=== PATIENT | female | born 1995 | race Caucasian/White ===

== ENCOUNTER 2016-09-14 13:35 | Day surgery (SDC) | payer OTHER ==
[2016-09-14 14:09] LABS: BASOPHIL 0.4 % (0-2.0); EOSINOPHIL 0.7 % (0-4.5); MCHC 33.6 g/dl (32.0-36.0); MEAN CELL VOLUME 89.3 fl (80-96); MEAN PLT VOLUME 11.3 fl (7.5-11.1); NEUTROPHILS 62.4 % (42.8-82.8); PLATELET COUNT 132 K/MM3 (134-434); RDW 12.8 % (11.6-15.6); WHITE BLOOD COUNT 6.6 K/mm3 (4.0-10.0)
[2016-09-14 14:14] VITALS: BMI 17.4
[2016-09-14] MEDS ORDERED: MIDAZOLAM HCL 2 MG/2 ML SINGLE DOSE VIAL ONE (15:49)
[2016-09-14] MEDS ORDERED: PROPOFOL 20 ML ONE (15:57)
--- NOTE | 2016-09-14 15:59 | HP ---
Past Medical History - Primary Care Physician PCP:: Ellen Car - Admission Chief Complaint: 21 yrs , 8.6 wks diagnozed missed is admitted for D& C suction . c/o cramps, no c/o bleeding, requests termination of History of Present Illness: pnc at [address] [place] [address] one vist 09/10/16 sono 7 wks iup, no fHr seen demise wirk up noted AB pos pap unsatisfactory. gc/ct neg History Source: Patient, Medical Record Limitations to Obtaining History: No Limitations - Past Medical History PANMAN: No: CVA, Migraine, Seizure Cardiovascular: No: HTN Pulmonary: No: Asthma Gastrointestinal: No: Gastritis Reproductive: No: Ectopic , PID ...: 2 ...Para: 0 ...Induced : 1 (2014) ...LMP: 07/11/16 ... Weeks Gestation by Dates: 8.6 Heme/Onc: No: Anemia, Bleeding Disorder Infectious Disease: No: HIV, STD's Psych: No: Depression Endocrine: No: Diabetes Mellitus, Hyperthyroidism, Hypothyroidism - Past Surgical History Past Surgical History: Yes: None Hx Myomectomy: No Hx Transabdominal Cerclage: No - Smoking History Smoking history: Never smoked Have you smoked in the past 12 months: No - Alcohol/Substance Use Hx Alcohol Use: Yes (SOCIALLY) History of Substance Use: reports: None Home Medications - Allergies Allergies/Adverse Reactions: Allergies Allergy/AdvReac Type Severity Reaction Status Date / Time No Known Drug Allergies Allergy Verified 09/14/16 14:20 - Home Medications Home Medications: Ambulatory Orders Acetaminophen [Tylenol] 650 mg PO PRN PRN 09/14/16 Iron 18 mg PO DAILY 09/14/16 Vit/Iron Fumarate/FA [ Tablet] 1 each PO DAILY 09/14/16 Physical Exam - Maternity Vital Signs: Vital Signs Temperature 98.1 F 09/14/16 14:28 Pulse Rate 78 09/14/16 14:28 Respiratory Rate 20 09/14/16 14:28 Blood Pressure 107/68 09/14/16 14:28 O2 Sat by Pulse Oximetry (%) 100 09/14/16 14:26 Constitutional: Yes: Well Nourished Eyes: Yes: WNL HENT: Yes: WNL Neck: Yes: WNL Cardiovascular: Yes: WNL Lungs: Clear to auscultation Breast(s): Yes: WNL. No: Mass - Abdominal Exam/OB Fundal Height: 6 Heart Rate (range): abs - Vaginal Exam/OB Vaginal Bleediing: No Speculum Exam: Yes Dilatation (cm): close - Physical Exam Musculoskeletal: Yes: WNL Extremities: Yes: WNL. No: Calf Tenderness Edema: No Integumentary: Yes: WNL Deep Tendon Reflex Grade: Normal +2 ...Motor Strength: WNL Psychiatric: Yes: WNL, Alert, Oriented - Labs Lab Results: CBC, BMP 09/14/16 13:57 Laboratory Tests 09/14/16 13:57 Blood Type AB POSITIVE Problem List - Problems (1) 8 weeks gestation of Code(s): Z3A.08 - 8 WEEKS GESTATION OF (2) Missed Code(s): O02.1 - MISSED Assessment/Plan 21 yrs 8.6 weeks, by dates, 7 weeks by sono, absent fhs on sono diagnozed missed ab Plan dilatation suction curettage
[2016-09-14] MEDS ORDERED: DEXAMETHASONE SOD PHOSPHATE 4 MG/1 ML VIAL ONE (16:01)
[2016-09-14] MEDS ORDERED: KETOROLAC TROMETHAMINE 30 MG/1 ML VIAL ONE (16:10)
[2016-09-14] MEDS ORDERED: OXYTOCIN 10 UNITS/ML VIAL ONE (16:12)
[2016-09-14] MEDS ORDERED: PROMETHAZINE HCL 25 MG/1 ML VIAL IVPUSH PRN (16:21)
[2016-09-14] MEDS ORDERED: ONDANSETRON 4 MG/2 ML VIAL IVPUSH PRN (16:21)
[2016-09-14] MEDS ORDERED: ACETAMINOPHEN 325 MG TABLET (FP) PO PRN (16:24)
[2016-09-14] MEDS ORDERED: IBUPROFEN 400 MG TABLET (FP) PO PRN (16:24)
--- NOTE | 2016-09-14 16:28 | OP ---
Operative Note - Note: Operative Date: 09/14/16 Pre-Operative Diagnosis: missed ab. 8 weeks gestation Operation: dilatation suction curettage Findings: Ut av 6 weeks size, soft, cx close, dilated upto #10, 9# canula used uterocervical length 9cm adnexa head shipper Surgeon: Ellen Car Anesthesiologist/CALL WORKER: Fito Shukla Anesthesia: MAC Specimens Removed: uterine contents Estimated Blood Loss (mls): 150 Fluid Volume Replaced (mls): 500 (pitocin in 1000ml RL solution added) Operative Report Dictated: Yes
[2016-09-14] MEDS ORDERED: LACTATED RINGERS SOLUTION 1,000 ML IV SCH (16:30)
[2016-09-14 17:02] VITALS: TEMP 97.7
--- NOTE | 2016-09-14 17:25 | OP ---
DATE OF OPERATION: 09/14/2016 PREOPERATIVE DIAGNOSIS: Missed . POSTOPERATIVE DIAGNOSIS: Missed . OPERATION DONE: Dilatation, suction, curettage. SURGEON: Jyoti Car M.D. ANESTHESIOLOGIST: Fito Shukla M.D. ANESTHESIA: IV anesthesia. FINDINGS: This is a 21-year-old 2 para 0-0-1-0, LMP on July 11, 2016 , is 8.6 weeks' gestation by days and by sonogram on September 10, 2016, she is 7 weeks. No heart sounds were noted, so demise was diagnosed. Missed is diagnosed. PROCEDURE: Patient is taken to operating room table and general anesthesia was given. Patient was placed in lithotomy position. Pubis, perineum, vagina was painted with Betadine, draped in usual manner. Pelvic examination was done. Uterus was anteverted 6 weeks' size. Both adnexa was not palpable. Weighted speculum was put anterior lip of the cervix was held with the single-tooth tenaculum, and the cervix was dilated up to number 10 dilator and number 9 cannula was used for suction, and then suction was done, and the uterine contents were aspirated out until no more contents were obtained, then the cannula was removed. Uterine cavity was curetted, gritty sensation was found, uterine cavity was cleaned. The tenaculum was removed. A little tear was noted anteriorly and no bleeding. Silver nitrate was used for hemostasis. Weighted speculum removed. Patient tolerated procedure well. Pelvic examination was done again and uterus was firm. Estimated blood loss was 150 mL. Blood type is AB positive. Patient tolerated procedure well. Then she was transferred to the recovery room in stable condition. Anesthesiologist was asked to add 20 units of Pitocin to 1000 ml during the procedure. JYOTI CAR M.D. [id number] MTDD
[2016-09-14 18:55] VITALS: BP 106/51; PULSE 70
--- NOTE | 2016-09-16 12:45 | PATH ---
Surgical Pathology Report Patient Name: AJ HOLLY Med. Rec. #: [id number] /Age/Gender: 1995 (Age: 21) / F Account: [id number] Location: [facility] SURGICAL Taken: 09/14/2016 Received: 09/15/2016 Reported: 09/16/2016 Physicians: Ellen Car M.D. Specimen(s) Received UTERINE CONTENTS Clinical History Missed , Sonogram 09/10/16 7 week absent [facility] Final Diagnosis UTERINE CONTENT: SOMATIC TISSUE IDENTIFIED (NUCLEATED RED BLOOD CELLS). CHORIONIC VILLUS TISSUE PRESENT, PARTIALLY FIBROTIC AND HYDROPIC. Electronically Signed Sebastian Elaine M.D. Gross Description Received in formalin labeled "uterine content" is a 12.0 x 8.5 x 1.2 cm aggregate of dc-brown soft tissue fragments. Villous tissue is identified. No definite somatic tissue is identified. A claims customer service representative portion is submitted in one cassette. 09/15/2016 [facility]
== END 2016-09-14 18:50 | disposition home or self-care (01) ==
LOC: JASU-SURG 13:35
PROVIDERS: ATTEND Obstetrics & Gynecology
PROC: 10D17ZZ Extraction of Products of Conception, Retained, Via Natural or Artificial Opening (ICD-10-PCS; principal; 2016-09-14 16:00)
DX: O02.1 Missed abortion (principal)
CPT/HCPCS: 36415; 85025; 86850; 86900; 86901; 88305-TC; 94760

== ENCOUNTER 2017-01-06 21:24 | Emergency (ER) | payer SELFPAY ==
[2017-01-06 21:59] VITALS: BP 131/86; PULSE 71; TEMP 99; BMI 17.6
[2017-01-07] MEDS ORDERED: ACETAMINOPHEN 1000 MG/100 ML VIAL (NON FORMULARY) IVPB ONE (00:02)
[2017-01-07] MEDS ORDERED: SODIUM CHLORIDE 1,000 ML IV STA (00:02)
[2017-01-07] MEDS ORDERED: ACETAMINOPHEN INJECTION 100 ML IVPB ONE (00:20)
[2017-01-07 00:27] LABS: BASOPHIL 0.4 % (0-2.0); EOSINOPHIL 0.8 % (0-4.5); MCH 30.3 pg (25.7-33.7); MCHC 34.1 g/dl (32.0-36.0); MEAN CELL VOLUME 88.6 fl (80-96); MEAN PLT VOLUME 11.4 fl (7.5-11.1); NEUTROPHILS 60.1 % (42.8-82.8); PLATELET COUNT 135 K/MM3 (134-434); RDW 13.5 % (11.6-15.6); WHITE BLOOD COUNT 8.1 K/mm3 (4.0-10.0)
[2017-01-07 00:31] LABS: URINE APPEARANCE SLCLOUDY; URINE BILIRUBIN NEGATIVE (NEGATIVE); URINE BLOOD NEGATIVE (NEGATIVE); URINE COLOR LTYELLOW; URINE GLUCOSE (UA) NEGATIVE (NEGATIVE); URINE KETONE NEGATIVE (NEGATIVE); URINE LEUK ESTERASE NEGATIVE (NEGATIVE); URINE NITRITE NEGATIVE (NEGATIVE); URINE PROTEIN NEGATIVE (NEGATIVE); URINE UROBILINOGEN NEGATIVE mg/dL (0.2-1.0)
--- NOTE | 2017-01-07 00:40 | PDOC ---
History of Present Illness - General Chief Complaint: Pain Stated Complaint: VAGINAL BLEEDING () Time Seen by Provider: 01/06/17 23:51 - History of Present Illness Initial Comments: 01/07/17 00:38 "The patient is a 21 year old female A2, with no significant past medical history, who presents to the emergency room 5 weeks complaining of 4 days of intermittent suprapubic abdominal cramping and nausea. Her LMP was . She denies vaginal bleeding, vaginal discharge. She has not had an ultrasound yet. Denies fever, chills, vomiting. Denies dysuria. Denies flank pain. Allergies: HARJINDER OBGYN: Dr. Driscoll " Past History - Past Medical History Allergies/Adverse Reactions: Allergies Allergy/AdvReac Type Severity Reaction Status Date / Time No Known Drug Allergies Allergy Verified 09/14/16 14:20 Home Medications: Ambulatory Orders Acetaminophen [Tylenol .Regular Strength -] 650 mg PO Q4H PRN #0 tablet Acetaminophen [Tylenol] 650 mg PO PRN PRN 09/14/16 Ibuprofen [Motrin -] 400 mg PO Q4H PRN #0 tablet 09/14/16 Iron 18 mg PO DAILY 09/14/16 Vit/Iron Fumarate/FA [ Tablet] 1 each PO DAILY 09/14/16 - Suicide/Smoking/Psychosocial Hx Smoking History: Never smoked Have you smoked in the past 12 months: No Information on smoking cessation initiated: No Hx Alcohol Use: No Drug/Substance Use Hx: No Substance Use Type: Alcohol Hx Substance Use Treatment: No Review of Systems - Review of Systems Comments:: 01/07/17 00:38 " GENERAL/CONSTITUTIONAL: No fever or chills. No weakness. HEAD, EYES, EARS, NOSE AND THROAT: No change in vision. No ear pain or discharge. No sore throat. CARDIOVASCULAR: No chest pain or shortness of breath. RESPIRATORY: No cough, wheezing, or hemoptysis. GASTROINTESTINAL: +suprapubic cramping. No nausea, vomiting, diarrhea or constipation. GENITOURINARY: No dysuria, frequency, or change in urination. MUSCULOSKELETAL: No joint or muscle swelling or pain. No neck or back pain. SKIN: No rash NEUROLOGIC: No headache, vertigo, loss of consciousness, or change in strength/ sensation. ENDOCRINE: No increased thirst. No abnormal weight change. HEMATOLOGIC/LYMPHATIC: No anemia, easy bleeding, or history of blood clots. ALLERGIC/IMMUNOLOGIC: No hives or skin allergy." *Physical Exam - Vital Signs Last Vital Signs Temp Pulse Resp BP Pulse Ox 99.0 F 71 18 131/86 100 01/06/17 21:57 01/06/17 21:57 01/06/17 21:57 01/06/17 21:57 01/06/17 21:57 - Physical Exam Comments: 01/07/17 00:39 "GENERAL: Awake, alert, and fully oriented, in no acute distress HEAD: No signs of trauma EYES: PERRLA, EOMI, sclera anicteric, conjunctiva clear ENT: Auricles normal inspection, hearing grossly normal, nares patent, oropharynx clear without exudates. Moist mucosa NECK: Nontender, no stepoffs, Normal ROM, supple, no lymphadenopathy, JVD, or masses LUNGS: Breath sounds equal, clear to auscultation bilaterally. No wheezes, and no crackles HEART: Regular rate and rhythm, normal S1 and S2, no murmurs, rubs or gallops ABDOMEN: +suprapubic tenderness to palpation. Soft, normoactive bowel sounds. No guarding, no rebound. No masses : no adnexal masses or tenderness, no CMT, no discharge or bleeding EXTREMITIES: Normal range of motion, no edema. No clubbing or cyanosis. No cords, erythema, or tenderness NEUROLOGICAL: Cranial nerves II through XII intact. 5/5 strength and sensation in all extremities, Normal speech, normal gait SKIN: Warm, Dry, normal turgor, no rashes or lesions noted. " ED Treatment Course - LABORATORY CBC & Chemistry Diagram: 01/07/17 00:10 01/07/17 00:10 - ADDITIONAL ORDERS Additional order review: Laboratory Results 01/07/17 00:10 Urine Color Ltyellow Urine Appearance Slcloudy Urine pH 5.0 Urine Protein Negative Urine Glucose (UA) Negative Urine Ketones Negative Urine Blood Negative Urine Nitrite Negative Urine Bilirubin Negative Urine Urobilinogen Negative 01/07/17 00:10 RBC 4.23 MCV 88.6 MCHC 34.1 RDW 13.5 MPV 11.4 H Neutrophils % 60.1 Lymphocytes % 30.9 Monocytes % 7.8 Eosinophils % 0.8 Basophils % 0.4 - RADIOLOGY Radiology Studies Ordered: Category Date Time Status TRANSVAGINAL ULTRASOUND US [US] Stat Ultrasound 01/07/17 00:01 Ordered - Medications Given in the ED: ED Medications Discontinued Medications Generic Name Dose Route Start Last Admin Trade Name Geraldo PRN Reason Stop Dose Admin Acetaminophen 1,000 mg 01/07/17 00:02 01/07/17 00:32 Ofirmev Injection - IVPB 01/07/17 00:03 1,000 mg ONCE ONE Administration Medical Decision Making - Medical Decision Making 01/07/17 00:39 21 F presents with suprapubic cramping at 5 weeks . Concerning for ectopic. Pt with no RLQ pain, no fevers, no vomiting to suggest appy. Also consider cystitis. - Labs, UA, HCG - TVUS 01/07/17 03:59 TVUS with irregular cystic fluid collection in endometrium, with no pole or yolk sac. Inconclusive for IUP vs spontaneous ab vs early ectopic. Pt instructed on need for repeat imaging and blood tests in 48 hours. *DC/Admit/Observation/Transfer Diagnosis at time of Disposition: Abdominal pain affecting - Discharge Dispostion Disposition: HOME Condition at time of disposition: Stable - Referrals Referrals: Jovan Frye MD [Staff Physician] - - Patient Instructions Printed Discharge Instructions: DI for Ectopic Additional Instructions: Your ultrasound today was INCONCLUSIVE. Because you are still early in your , we were unable to see a live on the ultrasound. You will need to follow up with your electric mule driver within 2 days for a REPEAT ultrasound and blood tests. At this time, we cannot definitively rule out ectopic , which can lead to infertility, bleeding, or even . If you do not have your own electric mule driver, call the number provided to make an appointment in our clinic. If you experience worsening or persistent abdominal pain, vaginal bleeding, or any other concerning symptoms, return to the ER immediately. Diaz ultrasonido hoy fue INCONCLUSIVO. Debido a que todava est en el inicio de diaz embarazo, no pudimos victor m un parto vivo en la ecografa. Tendr que hacer un seguimiento con diaz obstetra dentro de 2 lei para ellen ecografa REPEAT y an lisis de aruna. En elizabeth momento, no podemos descartar definitivamente el embarazo ectpico, que puede conducir a infertilidad, sangrado, o incluso la muerte. Si no tiene diaz propio obstetra / gineclogo, llame al nmero proporcionado para hacer ellen sugar en nuestra clnica. Si experimenta dolor abdominal persistente, sangrado vaginal o cualquier otro s ntoma relacionado, regrese inmediatamente a la manuela de emergencias. - Attestations Physician Attestion: 01/07/17 04:05 I, Dr. Meir Fitzpatrick MD, attest that this document has been prepared under my direction and personally reviewed by me in its entirety. I further attest, that it accurately reflects all work, treatment, procedures and medical decision -making performed by me.
[2017-01-07 01:13] LABS: ALBUMIN 3.9 g/dl (3.4-5.0); ANION GAP 8 (8-16); BILIRUBIN,TOTAL 0.2 mg/dL (0.2-1.0); CALCIUM 9.2 mg/dL (8.5-10.1); CO2 25 mmol/L (21-32); CREATININE 0.6 mg/dL (0.55-1.02); GLUCOSE,RANDOM 82 mg/dL (74-106); SGOT/AST 21 U/L (15-37); SGPT/ALT 24 U/L (12-78); TOT PROT 7.1 g/dl (6.4-8.2)
[2017-01-07 01:28] LABS: ALK PHOS 64 U/L (45-117)
== END 2017-01-07 05:16 | disposition home or self-care (01) ==
LOC: JER 21:24
PROC: 3E033NZ Introduction of Analgesics, Hypnotics, Sedatives into Peripheral Vein, Percutaneous Approach (ICD-10-PCS; principal; 2017-01-06)
DX: O26.891 Other specified pregnancy related conditions, first trimester (principal); R10.30 Lower abdominal pain, unspecified; Z3A.01 Less than 8 weeks gestation of pregnancy
CPT/HCPCS: 36415; 76830-TC; 80053; 81003; 84702; 85025; 86850; 86900; 86901; 99281-25

== ENCOUNTER 2017-01-09 17:49 | Emergency (ER) | payer SELFPAY ==
[2017-01-09 17:56] VITALS: BP 111/64; PULSE 63; TEMP 98.5; BMI 17.6
--- NOTE | 2017-01-09 18:55 | PDOC ---
History of Present Illness - General Chief Complaint: [facility] [place] Stated Complaint: ER REVIST Time Seen by Provider: 01/09/17 18:45 History Source: Patient Exam Limitations: No Limitations - History of Present Illness Initial Comments: 01/09/17 18:54 CHIEF COMPLAINT: Lower abdominal cramping here for repeat beta hCG HISTORY OF PRESENT ILLNESS: Patient is a 21-year-old female was seen here on , 01/06/2017 was seen for abdominal cramping was told she was last menstrual period was December 02. Beta hCG was: Laboratory Tests 01/07/17 00:10 Beta HCG, Quant 4465.5 Ultrasound showed an intrauterine gestational sac with no yolk sac recommended repeat ultrasound in 2-3 weeks. Patient denies any vaginal bleeding or discharge. Repeat beta hCG to see trend. Severity: moderate Associated Symptoms: reports: denies symptoms Past History - Past Medical History Allergies/Adverse Reactions: Allergies Allergy/AdvReac Type Severity Reaction Status Date / Time No Known Drug Allergies Allergy Verified 01/09/17 17:56 Home Medications: Ambulatory Orders Vit/Iron Fumarate/FA [ Tablet] 1 each PO DAILY 09/14/16 - Suicide/Smoking/Psychosocial Hx Smoking History: Never smoked Have you smoked in the past 12 months: No Information on smoking cessation initiated: No Hx Alcohol Use: No Drug/Substance Use Hx: No Substance Use Type: None Hx Substance Use Treatment: No Review of Systems - Review of Systems Constitutional: No: Symptoms Reported Respiratory: No: Symptoms reported Cardiac (ROS): No: Symptoms Reported ABD/GI: Yes: Abdominal cramping. No: Blood Streaked Bowels, Constipated, Diarrhea, Difficulty Swallowing, Rectal Bleeding, Vomiting : No: Symptoms Reported, Burning, Dysuria, Discharge, Frequency, Flank Pain, Hematuria, Incontinence, Pain, Urgency Musculoskeletal: No: Symptoms Reported Integumentary: No: Symptoms Reported Neurological: No: Symptoms reported Hematologic/Lymphatic: No: Symptoms Reported All Other Systems: Reviewed and Negative *Physical Exam - Vital Signs Last Vital Signs Temp Pulse Resp BP Pulse Ox 98.5 F 63 18 111/64 100 01/09/17 17:54 01/09/17 17:54 01/09/17 17:54 01/09/17 17:54 01/09/17 17:54 - Physical Exam General Appearance: Yes: Appropriately Dressed. No: Apparent Distress Neck: positive: Tender lateral, Tender midline. negative: Tender Respiratory/Chest: positive: Lungs Clear, Normal Breath Sounds. negative: Respiratory Distress, Accessory Muscle Use Cardiovascular: positive: Regular Rhythm, Regular Rate Female Pelvic Exam: positive: normal external exam, cervical os closed. negative: discharge, adnexal tenderness, vaginal bleeding Gastrointestinal/Abdominal: positive: Soft. negative: Normal Bowel Sounds, Tender Integumentary: positive: Normal Color, Dry Neurologic: positive: Alert, Normal Mood/Affect Medical Decision Making - Medical Decision Making 01/09/17 18:58 A/P: Patient here for abdominal cramping, found out she was on . Has a history of one in the past with miscarriage at 9 weeks. Ultrasound showed gestational sac with no yolk sac may be too early to review. Recommended repeat in 2-3 weeks. 01/09/17 19:53 Beta hCG on January 06 was 4465 now Laboratory Tests 01/09/17 18:59 Beta HCG, Quant 8886.1 Consistent with . Patient will need to follow-up as outpatient with OB/ DAM WORKER for repeat ultrasound in 2-3 weeks. May be too soon to visualize pole. Patient made aware will follow-up as instructed if any increased pain, vaginal discharge, bleeding, or any other concerns return immediately to ER I discussed the physical exam findings, ancillary test results and final diagnoses with the patient. I answered all of the patient's questions. The patient was satisfied with the care received and felt comfortable with the discharge plan and treatment plan. The patient will call THERAPEUTIC CASE MANAGER tomorrow to arrange follow-up and will return to the Emergency Department with any new, persistent or worsening symptoms. *DC/Admit/Observation/Transfer Diagnosis at time of Disposition: Early stage of - Discharge Dispostion Disposition: HOME Condition at time of disposition: Good Admit: No - Referrals Referrals: [facility] [Provider Group] - Patient Instructions Additional Instructions: Your beta hCG is 8886.1, follow-up with THERAPEUTIC CASE MANAGER as soon as possible for follow- up. Recommend follow-up ultrasound in 2-3 weeks
== END 2017-01-09 19:58 | disposition home or self-care (01) ==
LOC: JERFT 17:49
DX: O26.891 Other specified pregnancy related conditions, first trimester (principal); R10.30 Lower abdominal pain, unspecified; Z3A.01 Less than 8 weeks gestation of pregnancy
CPT/HCPCS: 36415; 84702; 99281-25

== ENCOUNTER 2017-09-05 03:50 | Inpatient (IN) | payer OTHER ==
[2017-09-05] MEDS ORDERED: BUTORPHANOL TARTRATE 1 MG/ML VIAL IVPUSH ONE (04:30)
[2017-09-05] MEDS ORDERED: PROMETHAZINE HCL 25 MG/1 ML VIAL IVPUSH ONE (04:30)
[2017-09-05] MEDS ORDERED: DEXTROSE 5%-LACTATED RINGERS 1,000 ML IV SCH (04:30)
[2017-09-05] MEDS ORDERED: PROMETHAZINE HCL 25 MG/1 ML VIAL ONE (05:09)
[2017-09-05] MEDS ORDERED: BUTORPHANOL TARTRATE 1 MG/ML VIAL ONE ×2 (05:09)
[2017-09-05 05:33] LABS: BASO % 0.1 % (0-2.0); EOS % 0.1 % (0-4.5); HEMATOCRIT 39.9 % (32.4-45.2); HEMOGLOBIN 13.6 GM/dL (10.7-15.3); LYMPH % 8.6 % (8-40); MCH 31.5 pg (25.7-33.7); MCHC 34.2 g/dl (32.0-36.0); MEAN CELL VOLUME 92.1 fl (80-96); MEAN PLT VOLUME 11.9 fl (7.5-11.1); MONO % 5.4 % (3.8-10.2); NEUT % 85.8 % (42.8-82.8); PLATELET COUNT 126 K/MM3 (134-434); RBC 4.33 M/mm3 (3.60-5.2); RDW 14.2 % (11.6-15.6); WHITE BLOOD COUNT 16.5 K/mm3 (4.0-10.0)
[2017-09-05 05:48] LABS: INR 0.92 (0.82-1.09); PROTHROMBIN TIME (PATIENT) 10.4 SEC (9.7-13.0)
[2017-09-05 05:51] LABS: ACTIVATED PTT 25.4 SECONDS (26.9-34.4)
[2017-09-05 05:55] LABS: ANION GAP 9 (8-16); BLOOD UREA NITROGEN 9 mg/dL (7-18); CALCIUM 8.7 mg/dL (8.5-10.1); CHLORIDE 102 mmol/L (98-107); CO2 23 mmol/L (21-32); CREATININE 0.4 mg/dL (0.55-1.02); GLUCOSE,RANDOM 82 mg/dL (74-106); POTASSIUM 3.6 mmol/L (3.5-5.1); SODIUM 134 mmol/L (136-145)
[2017-09-05 06:02] VITALS: BMI 21.7
--- NOTE | 2017-09-05 08:32 | PN ---
Progress Note (short form) - Note Progress Note: cx 8 cm, 80 vx -1 , fhr cat 1, arom. clear
--- NOTE | 2017-09-05 08:39 | HP ---
Past Medical History - Primary Care Physician PCP:: Jovan Frye - Admission Chief Complaint: 39 weeks, labor History of Present Illness: 22 yo f edc 09/08/17 39 weeks in labor ,no rom, cx 3 cm 80 vx -2 mi, fhr cat 1, regular contraction History Source: Patient Limitations to Obtaining History: No Limitations - Past Medical History ...: 3 ...Para: 0 ...Term: 0 ...: 0 ...Spon : 1 ...Induced : 1 ...Multiple Gestation: 0 ...LMP: 12/02/16 ... Weeks Gestation by Dates: 39.4 ...EDC by Dates: 09/08/17 - Past Surgical History Past Surgical History: Yes: None Hx Myomectomy: No Hx Transabdominal Cerclage: No - Smoking History Smoking history: Never smoked Have you smoked in the past 12 months: No - Alcohol/Substance Use Hx Alcohol Use: No History of Substance Use: reports: None - Social History History of Recent Travel: No Home Medications - Allergies Allergies/Adverse Reactions: Allergies Allergy/AdvReac Type Severity Reaction Status Date / Time No Known Drug Allergies Allergy Verified 09/05/17 06:31 - Home Medications Home Medications: Ambulatory Orders Vit/Iron Fum/Folic AC [ Tablet] 1 each PO DAILY 09/14/16 Review of Systems - Review of Systems Constitutional: reports: No Symptoms Eyes: reports: No Symptoms HENT: reports: No Symptoms Neck: reports: No Symptoms Cardiovascular: reports: No Symptoms Respiratory: reports: No Symptoms Gastrointestinal: reports: No Symptoms Genitourinary: reports: No Symptoms Integumentary: reports: No Symptoms Neurological: reports: No Symptoms Endocrine: reports: No Symptoms Hematology/Lymphatic: reports: No Symptoms Psychiatric: reports: No Symptoms Physical Exam - Maternity Vital Signs: Vital Signs Temperature 99.2 F 09/05/17 08:00 Pulse Rate 89 09/05/17 08:00 Respiratory Rate 18 09/05/17 08:00 Blood Pressure 121/69 09/05/17 08:00 O2 Sat by Pulse Oximetry (%) Constitutional: Yes: Well Nourished, No Distress, Calm Eyes: Yes: WNL, Conjunctiva Clear, EOM Intact HENT: Yes: WNL, Atraumatic, Normocephalic Neck: Yes: WNL, Supple, Trachea Midline Cardiovascular: Yes: WNL, Regular Rate and Rhythm Breast(s): Yes: WNL - Abdominal Exam/OB Fundal Height: 38 Number of Fetuses: Single Presentation: Vertex Contractions: Yes Regularity: Regular Intensity: Mod/Strong Monitor Mode: External Heart Rate Location: [facility] Category: I Accelerations: Uniform - Vaginal Exam/OB Vaginal Bleediing: No Amniotic Membrane Status: Intact Presentation: Vertex/Position Station: -3 - Physical Exam Musculoskeletal: Yes: WNL Extremities: Yes: WNL Edema: LLE: Trace, RLE: Trace Deep Tendon Reflex Grade: Normal +2 Psychiatric: Yes: WNL - Labs Lab Results: CBC, BMP 09/05/17 05:00 09/05/17 05:00 Hemorrhage Risk Assessment - Risk Factors Medium Risk Factors: Yes: None High Risk Factors: Yes: None Risk Score: 1 Risk Level: Medium Risk Problem List - Problems (1) with 39 completed weeks gestation Code(s): Z3A.39 - 39 WEEKS GESTATION OF (2) Labor established Code(s): TUR9435 - Assessment/Plan admit for vaginal delivery, FHM
[2017-09-05] MEDS ORDERED: OXYTOCIN 20 UNITS in 0.9% NS 20 UNIT/1,000 ML INFUS.BAG IV ONE ×2 (08:55→13:43)
[2017-09-05] MEDS ORDERED: TUBERCULIN PPD 5 TU/0.1ML SYRINGE (IN PATIENT USE ONLY) ID ONE (09:00)
[2017-09-05] MEDS ORDERED: LIDOCAINE HCL 1% PRESERVATIVE FREE - 30ML VIAL ONE (11:15)
[2017-09-05] MEDS ORDERED: METHYLERGONOVINE MALEATE 0.2 MG/1 ML AMP IM PRN (11:26)
[2017-09-05] MEDS ORDERED: BISACODYL 10 MG SUPP.RECT RC PRN (11:26)
[2017-09-05] MEDS ORDERED: oxyCODONE HCL 5 MG TABLET PO PRN (11:26)
[2017-09-05] MEDS ORDERED: WITCH HAZEL 50% (TUCKS) 40 PAD/JAR PAD TP PRN (11:26)
[2017-09-05] MEDS ORDERED: BENZOCAINE 28 GM HEMORRHOIDAL OINTMENT TP PRN (11:26)
--- NOTE | 2017-09-05 11:26 | PN ---
Progress Note (short form) - Note Progress Note: cx full.100, vx 1+ , fhr cat 1 Problem List - Problems (1) with 39 completed weeks gestation Code(s): Z3A.39 - 39 WEEKS GESTATION OF (2) Labor established Code(s): YWA2851 -
[2017-09-05] MEDS ORDERED: D5W-LR W/ 20 UNITS OXYTOCIN 1,000 ML IV SCH (11:30)
[2017-09-05] MEDS ORDERED: OXYTOCIN 20 UNITS in 0.9% NS 20 UNIT/1,000 ML INFUS.BAG IV SCH (12:10)
[2017-09-05 12:41] LABS: ARTERIAL BLD GAS O2 SATURATION 47.1 % (90-98.9); ARTERIAL BLOOD GAS BASE EXCESS -3.6 meq/l (-2-2); ARTERIAL BLOOD GAS PCO2 47.3 mmHg (35-45); ARTERIAL BLOOD GAS PO2 24.2 mmHg (80-100); ARTERIAL BLOOD GAS pH 7.3 (7.35-7.45)
[2017-09-05 12:45] LABS: VENOUS PH 7.31 (7.32-7.42)
[2017-09-05 12:46] LABS: VENOUS PC02 48.5 mmHg (38-52); VENOUS PO2 23.2 mmHg (28-48)
[2017-09-05] MEDS ORDERED: ACETAMINOPHEN 325 MG TABLET (FP) ONE (12:53)
[2017-09-05] MEDS ORDERED: IBUPROFEN 600 MG TABLET (FP) PO ONE (12:54)
[2017-09-05] MEDS: IBUPROFEN 600 MG TABLET (FP) PO PRN ×2 (12:55→16:57)
[2017-09-05] MEDS: ACETAMINOPHEN 325 MG TABLET (FP) PO PRN ×2 (12:55→16:58)
[2017-09-05] MEDS ORDERED: OXYTOCIN 20 UNITS in 0.9% NS 1000 ML INFUS.BAG IV ONE (14:06)
[2017-09-05] MEDS: BENZOCAINE 20% 57 GM BOTTLE TP PRN (16:58)
[2017-09-06] MEDS: FERROUS SO4 325 MG TABLET (FP) PO SCH ×3 (00:57→21:35)
[2017-09-06] MEDS: IBUPROFEN 600 MG TABLET (FP) PO PRN ×2 (02:31→14:47)
[2017-09-06 08:54] LABS: BASO % 0.3 % (0-2.0); EOS % 0.2 % (0-4.5); HEMATOCRIT 33.4 % (32.4-45.2); HEMOGLOBIN 11.3 GM/dL (10.7-15.3); LYMPH % 14.4 % (8-40); MCH 31.9 pg (25.7-33.7); MCHC 33.9 g/dl (32.0-36.0); MEAN CELL VOLUME 94.1 fl (80-96); MEAN PLT VOLUME 11.5 fl (7.5-11.1); MONO % 7.9 % (3.8-10.2); NEUT % 77.2 % (42.8-82.8); PLATELET COUNT 90 K/MM3 (134-434); RBC 3.54 M/mm3 (3.60-5.2); RDW 14.5 % (11.6-15.6); WHITE BLOOD COUNT 14.2 K/mm3 (4.0-10.0)
[2017-09-06] MEDS: PRENATAL VITAMINS W/ FOLIC ACID TABLET (FP) PO SCH (09:57)
[2017-09-06] MEDS ORDERED: DIPHTH,PERTUSS(ACELL),TET 0.5 ML DISP.SYRIN IM ONE (10:00)
[2017-09-06] MEDS: ACETAMINOPHEN 325 MG TABLET (FP) PO PRN (14:48)
[2017-09-06] MEDS: BENZOCAINE 20% 57 GM BOTTLE TP PRN (21:41)
[2017-09-06] MEDS ORDERED: SENNOSIDES/DOCUSATE COMBO (SENNA PLUS) TABLET (UD) PO PRN (22:00)
[2017-09-06 23:00] VITALS: TEMP 98.3
[2017-09-07] MEDS: IBUPROFEN 600 MG TABLET (FP) PO PRN ×2 (03:12→12:54)
[2017-09-07] MEDS: ACETAMINOPHEN 325 MG TABLET (FP) PO PRN ×2 (03:13→12:56)
--- NOTE | 2017-09-07 06:45 | PN ---
Post Progress Note - Subjective Subjective: no complains except perineal soreness Post Day: 2 Type of Delivery: Vital Signs: Vital Signs Temperature 98.3 F 09/06/17 22:00 Pulse Rate 79 09/06/17 22:00 Respiratory Rate 18 09/06/17 22:00 Blood Pressure 106/54 09/06/17 22:00 O2 Sat by Pulse Oximetry (%) 100 09/05/17 13:00 Breast Exam: Yes: Soft, Other (attempting to breast feed. ) Uterus: Yes: Fundus Firm, Fundus below umbilicus, Non-tender Lochia: Yes: Rubra Lochia, amount: Moderate Extremities: Yes: Calves non-tender Perineum: Yes: Episiotomy Activity: Ambulating - Labs Labs: CBC WBC 14.2 K/mm3 (4.0-10.0) H 09/06/17 08:00 RBC 3.54 M/mm3 (3.60-5.2) L 09/06/17 08:00 Hgb 11.3 GM/dL (10.7-15.3) D 09/06/17 08:00 Hct 33.4 % (32.4-45.2) D 09/06/17 08:00 MCV 94.1 fl (80-96) 09/06/17 08:00 MCH 31.9 pg (25.7-33.7) 09/06/17 08:00 MCHC 33.9 g/dl (32.0-36.0) 09/06/17 08:00 RDW 14.5 % (11.6-15.6) 09/06/17 08:00 Plt Count 90 K/MM3 (134-434) L D 09/06/17 08:00 MPV 11.5 fl (7.5-11.1) H 09/06/17 08:00 Neutrophils % 77.2 % (42.8-82.8) 09/06/17 08:00 Lymphocytes % 14.4 % (8-40) D 09/06/17 08:00 Monocytes % 7.9 % (3.8-10.2) 09/06/17 08:00 Eosinophils % 0.2 % (0-4.5) D 09/06/17 08:00 Basophils % 0.3 % (0-2.0) 09/06/17 08:00 Nucleated RBC % 0 % (0-0) 09/06/17 08:00 Assessment/Plan stable plan discharge today
[2017-09-07] MEDS: FERROUS SO4 325 MG TABLET (FP) PO SCH (09:22)
[2017-09-07] MEDS: PRENATAL VITAMINS W/ FOLIC ACID TABLET (FP) PO SCH (09:22)
[2017-09-07 11:39] VITALS: BP 117/76; PULSE 111
--- NOTE | 2017-09-08 20:15 | DS ---
Physical Exam-DESK ATTENDANT Vital Signs: Vital Signs Temperature 98.3 F 09/07/17 10:00 Pulse Rate 111 H 09/07/17 10:00 Respiratory Rate 18 09/07/17 10:00 Blood Pressure 117/76 09/07/17 10:00 O2 Sat by Pulse Oximetry (%) 100 09/05/17 13:00 ....Post : Yes: Uterus firm, Uterus non-tender, Slight lochia rubra Edema: No Labs: CBC, BMP 09/06/17 08:00 09/05/17 05:00 Delivery - Delivery Vaginal Delivery: Spontaneous (no complication) Type of Anesthesia: Local Episiotomy/Laceration: Midline EBL (cc): 300 Delivery, Single - Stages of Labor Date 1st Stage Initiatied: 09/04/17 Time 1st Stage Initiated: 23:00 Date 2nd Stage Initiated: 09/05/17 Time 2nd Stage Initiated: 10:20 Date of Delivery: 09/05/17 Time of Delivery: 12:06 Time Placenta Delivered: 12:10 Placenta: Yes: Spontaneous - Condition of Legal Researcher/Automatic Profile Shaper Operator Present: No Infant Gender: Female Weight: 6 lb 9 oz Position: Left, OA - 1 Minute Total Score: 9 5 Minutes Total Score: 9 - [place] Feeding Plan Initial Plan: Exclusive throughout hospitalization Discharge Summary Reason For Visit: LABOR ADMITT Procedures: Principal: Hospital Course: no complication - Instructions Diet, Activity, Other Instructions: Discharge Instructions * Out of Bed * * Regular Diet * Sulma Care * Avoid sex for 6 weeks * RTC 4-6 weeks , call for appointment at [address] [place] [address] [phone] If you experience excessive bleeding or fever over 101 degrees, call doctor, the clinic or go to the Emergency Room. Referrals: Jovan Frye MD [Staff Physician] - Disposition: ELOPED - Home Medications Comprehensive Discharge Medication List: Ambulatory Orders Vit/Iron Fum/Folic AC [ Tablet] 1 each PO DAILY 09/14/16 Acetaminophen [Tylenol .Regular Strength -] 650 mg PO Q3H PRN tablet 09/07/17 Benzocaine [Americaine 20% Crawford -] 1 spray TP PRN PRN bottle 09/07/17 Ibuprofen [Motrin -] 200 mg PO Q4H PRN tablet 09/07/17 Vitamins (Sjr) - 1 tab PO DAILY #30 tablet 09/07/17
== END 2017-09-07 13:15 | disposition left against medical advice (07) | DRG 560 ==
LOC: JDEL 03:50 → JLDR 03:55 → J3W 14:10
PROVIDERS: ADMIT Obstetrics & Gynecology; ATTEND Obstetrics & Gynecology
PROC: 10E0XZZ Delivery of Products of Conception, External Approach (ICD-10-PCS; principal; 2017-09-05)
PROC: 0W8NXZZ Division of Female Perineum, External Approach (ICD-10-PCS; 2017-09-05)
DX: O80 Encounter for full-term uncomplicated delivery (principal); Z3A.39 39 weeks gestation of pregnancy; Z37.0 Single live birth
CPT/HCPCS: 36415; 36600; 59409; 80048; 82803; 85025; 85610; 85730; 86593; 86850; 86900; 86901; 90715

== ENCOUNTER 2018-07-25 15:31 | Emergency (ER) | payer OTHER ==
--- NOTE | 2018-07-25 15:40 | PDOC ---
Rapid Medical Evaluation Time Seen by Provider: 07/25/18 15:38 Medical Evaluation: Allergies Allergy/AdvReac Type Severity Reaction Status Date / Time No Known Drug Allergies Allergy Verified 09/05/17 06:31 07/25/18 15:38 I have performed a brief in-person evaluation of this patient. The patient presents with a chief complaint of: URI symptoms x3 days Pertinent physical exam findings: OP- WNL. No cervical lymphadenopathy. Lungs CTAB I have ordered the following: nothing The patient will proceed to the ED for further evaluation. Discharge Disposition - Diagnosis URI (upper respiratory infection) - Referrals - Patient Instructions - Post Discharge Activity
[2018-07-25 15:42] VITALS: BP 118/59; PULSE 68; TEMP 98.1; BMI 17.9
--- NOTE | 2018-07-25 16:29 | PDOC ---
History of Present Illness - General Chief Complaint: Cold Symptoms Stated Complaint: COLD SYMPTOMS Time Seen by Provider: 07/25/18 15:38 History Source: Patient Exam Limitations: Clinical Condition - History of Present Illness Initial Comments: 07/25/18 16:24 Patient with no significant past medical history present with complaint of three -day history of cough, nasal congestion runny nose, intermittent chest tenderness and fever. Patient reported last fever yesterday of 10 2F. Denies nausea, vomiting, dizziness or weakness .Denies shortness of breath or chest pain. Denies any other symptoms Timing/Duration: other (3 days) Past History - Past Medical History Allergies/Adverse Reactions: Allergies Allergy/AdvReac Type Severity Reaction Status Date / Time No Known Drug Allergies Allergy Verified 09/05/17 06:31 Home Medications: Ambulatory Orders Ipratropium Celina 2 spray NS BID PRN #1 spray 07/25/18 Loratadine 10 mg PO DAILY #10 capsule 07/25/18 Methylprednisolone [Medrol Dose Derrell] 4 mg PO ASDIR #21 tablet 07/25/18 Asthma: No Cancer: No Cardiac Disorders: No Diabetes: No HTN: No Seizures: No Thyroid Disease: No - Suicide/Smoking/Psychosocial Hx Smoking History: Never smoked Have you smoked in the past 12 months: No Information on smoking cessation initiated: No Hx Alcohol Use: No Drug/Substance Use Hx: No Substance Use Type: None Hx Substance Use Treatment: No Review of Systems - Review of Systems Able to Perform ROS?: Yes Is the patient limited Persian proficient: No Constitutional: Yes: Fever, Malaise. No: Chills, Weakness HEENTM: Yes: Symptoms Reported, See HPI, Nose Congestion. No: Eye Pain, Blurred Vision, Tearing, Recent change in vision, Double Vision, Cataracts, Ear Pain, Ocular Prothesis, Ear Discharge, Nose Pain, Tinnitus, Nose Bleeding, Hearing Loss, Throat Pain, Throat Swelling, Mouth Pain, Dental Problems, Difficulty Swallowing, Mouth Swelling, Other Respiratory: Yes: Symptoms reported, See HPI, Cough. No: Orthopnea, Shortness of Breath, SOB with Exertion, SOB at Rest, Stridor, Wheezing, Productive cough, Hemoptysis, Other Cardiac (ROS): No: Symptoms Reported, See HPI, Chest Pain, Edema, Irregular Heart Rate, Lightheadedness, Palpitations, Syncope, Chest Tightness, Other ABD/GI: No: Symptoms Reported, Constipated, Diarrhea, Nausea, Vomiting, Abdominal cramping Neurological: No: Dizziness All Other Systems: Reviewed and Negative *Physical Exam - Vital Signs Last Vital Signs Temp Pulse Resp BP Pulse Ox 98.1 F 68 20 118/59 L 99 07/25/18 15:39 07/25/18 15:39 07/25/18 15:39 07/25/18 15:39 07/25/18 15:39 - Physical Exam Comments: 07/25/18 16:27 GENERAL: Well developed, well nourished. Awake and alert. No acute distress. HEENT: Normocephalic, atraumatic. PERRLA, EOMI. No conjunctival pallor. Sclera are non-icteric. Moist mucous membranes. Oropharynx is clear. NECK: Supple. Full ROM. CARDIOVASCULAR: Regular rate and rhythm. No murmurs, rubs, or gallops. Distal pulses are 2+ and symmetric. PULMONARY: No evidence of respiratory distress. Lungs clear to auscultation bilaterally. No wheezing, rales or rhonchi. ABDOMINAL: Soft. Non-tender. Non-distended. No rebound or guarding. No organomegaly. Normoactive bowel sounds. MUSCULOSKELETAL Normal range of motion at all joints. SKIN: Warm and dry. Normal capillary refill. No rashes. No jaundice. NEUROLOGICAL: Alert, awake, appropriate. Gait is normal without ataxia. PSYCHIATRIC: Cooperative. Good eye contact. Appropriate mood General Appearance: Yes: Nourished, Appropriately Dressed. No: Apparent Distress Medical Decision Making - Medical Decision Making 07/25/18 16:27 Patient with no significant past medical history present with complaint of three -day history of URI symptoms with fevers. Clinical exam unremarkable lungs clear to auscultation bilateral and normal cardio exam. Patient afebrile now. No pharyngeal erythema on exam .bilateral nasal congestion on exam. Symptoms likely viral URI versus influenza versus rhinitis. Rapid flu ordered to rule out influenza. 07/25/18 17:20 rapid flu negative. Patient stable for outpatient treatment of viral URI with medrol-derrell and atrovent nasal spray with PCP follow-up as needed *DC/Admit/Observation/Transfer Diagnosis at time of Disposition: Cough URI (upper respiratory infection) Qualifiers: URI type: unspecified viral URI Qualified Code(s): J06.9 - Acute upper respiratory infection, unspecified - Discharge Dispostion Disposition: HOME Condition at time of disposition: Stable Decision to Admit order: No - Prescriptions Prescriptions: Ipratropium Celina 2 spray NS BID PRN #1 spray PRN Reason: nasal congestion Loratadine 10 mg PO DAILY #10 capsule Methylprednisolone [Medrol Dose Derrell] 4 mg PO ASDIR #21 tablet - Referrals Referrals: Mirna Pierce GARMENT SORTER [Primary Care Provider] - - Patient Instructions Printed Discharge Instructions: DI for Viral Upper Respiratory Infection -- Adult, DI for Common Cold Additional Instructions: Your flu test was negative. Take medications as prescribed. Increase fluid intake. Follow-up with PCP as needed. - Post Discharge Activity
== END 2018-07-25 17:23 | disposition home or self-care (01) ==
LOC: JERFT 15:31
DX: J06.9 Acute upper respiratory infection, unspecified (principal); B97.89 Other viral agents as the cause of diseases classified elsewhere
CPT/HCPCS: 87804; 99281-25

== ENCOUNTER 2019-05-09 14:51 | Emergency (ER) | payer OTHER ==
[2019-05-09] MEDS ORDERED: ACETAMINOPHEN 1000 MG/100 ML VIAL (NON FORMULARY) IVPB ONE (14:57)
[2019-05-09] MEDS ORDERED: SODIUM CHLORIDE 1,000 ML IV STA (14:57)
[2019-05-09] MEDS ORDERED: METOCLOPRAMIDE HCL INJECTION 10 MG/2 ML VIAL IVPB ONE (14:57)
--- NOTE | 2019-05-09 14:57 | PDOC ---
Rapid Medical Evaluation Time Seen by Provider: 05/09/19 14:54 Medical Evaluation: Allergies Allergy/AdvReac Type Severity Reaction Status Date / Time No Known Drug Allergies Allergy Verified 05/09/19 14:54 05/09/19 14:54 Pt , currently 9 weeks presents to the ER for vomiting, cramping and headache. Last threw up 30 minutes prior to arrival. Has not had a US yet. Exam: NAD, lungs ctab, neurologically intact Orders: labs, meds, us Pt to proceed to the ER for further evaluation Discharge Disposition - Diagnosis Vomiting affecting - Referrals - Patient Instructions - Post Discharge Activity
[2019-05-09 14:58] VITALS: BMI 17.6
[2019-05-09] MEDS ORDERED: ACETAMINOPHEN INJECTION 100 ML IVPB ONE (15:27)
--- NOTE | 2019-05-09 16:04 | PDOC ---
History of Present Illness - General Chief Complaint: Nausea/Vomiting Stated Complaint: 9WK NH/ABD PAIN HEADACHE Time Seen by Provider: 05/09/19 14:54 - History of Present Illness Initial Comments: Giulia Ackerman is an otherwise healthy 24yo woman currently 9wks by LMP (03/07/19) who presents with persistent nausea/vomiting, headache, and lower abdominal cramping. She states that the pain improves after taking Tylenol, but she has been scared to take medication more than once per day. She has been trying to drink richard gonzalo and eat crackers for the nausea without any improvement. She was concerned about her symptoms not improving and because she did not have similar symptoms with her first , so she came to the ED for evaluation. Ms Ackerman denies any vaginal bleeding, vaginal discharge , urinary symptoms, change in bowel habits, back pain, fever, lightheadedness or other current symptoms. She notes that the abdominal pain is worst on the right but present across her lower abdomen. It has been relatively constant for several days. She has never had any abdominal surgeries. Ms Ackerman has an appointment with OB scheduled in 2 weeks but has not yet been seen and has not had her confirmed with US. Past History - Past Medical History Allergies/Adverse Reactions: Allergies Allergy/AdvReac Type Severity Reaction Status Date / Time No Known Drug Allergies Allergy Verified 05/09/19 14:54 Home Medications: Ambulatory Orders NK [No Known Home Medication] 05/09/19 Asthma: No Cancer: No Cardiac Disorders: No COPD: No Diabetes: No HTN: No Seizures: No Thyroid Disease: No - Psycho Social/Smoking Cessation Hx Smoking History: Never smoked Have you smoked in the past 12 months: No Information on smoking cessation initiated: No Hx Alcohol Use: No Drug/Substance Use Hx: No Substance Use Type: None Hx Substance Use Treatment: No Review of Systems - Review of Systems Comments:: General: No fevers, no chills, no weight or appetite change, no malaise HEENT: No changes in vision, no changes in hearing, no congestion, no sore throat CV: No chest pain, no palpitations, no LE edema Pulm: No SOB, no cough, no wheezing GI: +nausea/vomiting, no change in bowel habits, no melena : No frequency, no urgency, no dysuria, no vaginal bleeding/discharge Musc: No back pain, no joint swelling, no recent injury Skin: No rash, no lesions, no erythema Endo: No excessive thirst, no heat/cold intolerance Heme: No unusual bruising or bleeding, no swollen glands Neuro: No syncope, no numbness/tingling, no focal weakness Vasc: No claudication Psych: No recent change in mood, no SI or HI *Physical Exam - Vital Signs Last Vital Signs Temp Pulse Resp BP Pulse Ox 97.7 F 65 18 111/67 100 05/09/19 14:54 05/09/19 14:54 05/09/19 14:54 05/09/19 14:54 05/09/19 14:54 - Physical Exam General: Comfortable, no acute distress HEENT: PERRL, EOMI, MMM, voice normal, normal neck ROM, no LAD Cards: RRR, no murmur appreciated Pulm: Comfortable on room air, clear to auscultation bilaterally Abd: Soft, nondistended. Minimal TTP in lower abdomen : Deferred Ext: Atraumatic. No LE edema. ROM intact. Strength 5/5 and equal bilaterally Vasc: Extremities WWP. Palpable radial and pedal pulses bilaterally Skin: Normal color, no rashes or lesions Neuro: A&Ox3, CN grossly intact, normal speech, motor/sensory grossly intact and symmetric Psych: Mood appropriate to situation ED Treatment Course - LABORATORY CBC & Chemistry Diagram: 05/09/19 15:46 05/09/19 15:46 - Medications Given in the ED: ED Medications Discontinued Medications Generic Name Dose Route Start Last Admin Trade Name Geraldo PRN Reason Stop Dose Admin Acetaminophen 1,000 mg 05/09/19 14:57 05/09/19 16:00 Ofirmev Injection - IVPB 05/09/19 14:58 1,000 mg ONCE ONE Administration Diphenhydramine HCl 12.5 mg 05/09/19 14:57 05/09/19 15:24 Benadryl Injection - IVPB 05/09/19 14:58 Not Given ONCE ONE Sodium Chloride 1,000 mls @ 1,000 mls/hr 05/09/19 14:57 05/09/19 15:15 Normal Saline - IV 05/09/19 15:56 1,000 mls/hr ASDIR STA Administration Metoclopramide HCl 10 mg 05/09/19 14:57 05/09/19 15:25 Reglan Injection - IVPB 05/09/19 14:58 Not Given ONCE ONE Medical Decision Making - Medical Decision Making 05/09/19 16:02 Giulia Ackerman is an otherwise healthy 24yo woman currently 9wks by LMP (03/07/19) who presents with persistent nausea/vomiting, headache, and lower abdominal cramping for several days. She has not yet had any imaging during the current ; her first OB visit is scheduled in 2 weeks. - Ddx includes normal , ectopic , ovarian cyst, torsion, UTI, appendicitis - CBC, CMP, T&S, UA, UCx, bHCG - IVF, acetaminophen, reglan for symptoms - TVUS to confirm IUP - May need additional imaging if appendicitis appears to be the most likely diagnosis based on results 05/09/19 16:53 - Bedside US completed by Dr De León. Notes IUP, FHR 130 - Labs pending. Will send for formal US when confirmed 05/09/19 18:04 - TVUS completed. Shows IUP at 6w3d, FHR 128 - Labs completed, unremarkable - Will reassess. Likely to d/c home with OB follow up if improved 05/09/19 18:13 - Abdominal pain resolved, but pt still reports BLOUNT - Reglan and additional IVF for continued symptoms 05/09/19 19:41 - Feels significantly improved. Mild BLOUNT. - Reassessed. No neurological deficitis. Alert, oriented x4, strength and sensation intact, voice normal, CN grossly intact. - Has OB appointment scheduled for 05/22/19. Will d/c home to follow up with OB. Discussed return precautions in detail; pt states understanding 05/09/19 20:08 - Vitals rechecked at discharge. Now around 90/45, pt sleeping just prior to having BP checked. Asymptomatic, feels well. OK to discharge home. Discussed with Dr Cody Giron PGY2 Discharge - Discharge Information Problems reviewed: Yes Clinical Impression/Diagnosis: Vomiting affecting Condition: Stable Disposition: HOME - Admission No - Follow up/Referral Referrals: Mirna Pierce, OCCUPATIONAL THERAPY SUPERVISOR [Primary Care Provider] - - Patient Discharge Instructions Patient Printed Discharge Instructions: DI for -- Discomforts and Remedies Additional Instructions: Discharge Instructions: You were seen in the emergency department for nausea and vomiting during . Your blood tests did not show any abnormalities, and your symptoms improved with medications: Home Care and Follow Up: - Vomiting in early is common and is often not a cause for concern. - Eat small, frequent meals throughout the day. Consider keeping crackers or a small snack near your bed to eat as soon as you get up in the morning. - Make sure you are drinking plenty of fluids and staying well hydrated - A combination of vitamin B6 and doxylamine (brand name Unisom) is very effective for nausea/vomiting in . These are available over the counter. You may take 25mg vitamin B6 daily along with of a Unisom tablet ( 12.5mg). Please be aware that Unisom will make you sleepy; be careful driving after taking this medication. - Follow up with your studio operations engineer in charge within the next 1-2 weeks. - Seek immediate care if you have worsening symptoms, you are unable to keep down any food, you become dehydrated (stop urinating), you have any vaginal bleeding, or you have any other medical emergency. - Post Discharge Activity
[2019-05-09] MEDS ORDERED: METOCLOPRAMIDE HCL INJECTION 10 MG/2 ML VIAL IVPUSH ONE (16:18)
[2019-05-09 16:57] LABS: BASO % 0.5 % (0-2.0); EOS % 0.5 % (0-4.5); HEMATOCRIT 37.2 % (32.4-45.2); HEMOGLOBIN 12.5 GM/dL (10.7-15.3); LYMPH % 26.6 % (8-40); MCH 30.2 pg (25.7-33.7); MCHC 33.7 g/dl (32.0-36.0); MEAN CELL VOLUME 89.7 fl (80-96); MEAN PLT VOLUME 12.3 fl (7.5-11.1); MONO % 6.1 % (3.8-10.2); NEUT % 66.3 % (42.8-82.8); PLATELET COUNT 151 K/MM3 (134-434); RBC 4.15 M/mm3 (3.60-5.2); RDW 12.8 % (11.6-15.6); WHITE BLOOD COUNT 7.8 K/mm3 (4.0-10.0)
[2019-05-09 17:03] LABS: HYALINE CASTS 4 /lpf (0-8); PH,URINE 5.5 (5.0-8.0); URINE APPEARANCE CLEAR; URINE BACTERIA 27.7 /hpf (NEGATIVE); URINE BILIRUBIN NEGATIVE (NEGATIVE); URINE COLOR YELLOW; URINE GLUCOSE (UA) NEGATIVE (NEGATIVE); URINE KETONE NEGATIVE (NEGATIVE); URINE LEUK ESTERASE TRACE (NEGATIVE); URINE NITRITE NEGATIVE (NEGATIVE); URINE PROTEIN NEGATIVE (NEGATIVE); URINE RBC 0 /hpf (0-4); URINE UROBILINOGEN 0.2 mg/dL (0.2-1.0); URINE WBC 4 /hpf (0-5)
[2019-05-09 17:43] LABS: ALBUMIN 3.8 g/dl (3.4-5.0); BILIRUBIN,TOTAL 0.3 mg/dL (0.2-1); CREATININE 0.5 mg/dL (0.55-1.3); TOT PROT 7.2 g/dl (6.4-8.2)
--- NOTE | 2019-05-09 17:45 | PDOC ---
Documentation entered by Jaylin Love SCRIBE, acting as scribe for Felisa Ross MD. Felisa Ross MD: This documentation has been prepared by the Kate saldivar Adrianna, SCRIBE, under my direction and personally reviewed by me in its entirety. I confirm that the documentation accurately reflects all work, treatment, procedures, and medical decision making performed by me. Attending Attestation - Resident Resident Name: Judith Giron - ED Attending Attestation I have performed the following: I have examined & evaluated the patient, The case was reviewed & discussed with the resident, I agree w/resident's findings & plan, Exceptions are as noted - HPI HPI: The patient is a 24 year old female currently at ~9 weeks gestation, with no significant PMH, who presents to the ED for evaluation of nausea and vomit. Patient complains of lower abdominal pain, with associated nausea, vomit, and BLOUNT. She denies any vaginal bleeding or discharge. Symptoms have been present for at least 2 days. She has no fevers or chills. Patient denies traumatic injury. Patient denies dysuria. Patient denies flank pain Allergies: NKA, NKDA Surgical History: None reported Social History: Denies EtOH, tobacco, or illicit drug use PCP: Dr. Pierce 05/09/19 17:43 - Physicial Exam PE: 05/09/19 17:43 GENERAL: The patient is in no acute distress. ENT: Ears normal, nares patent, oropharynx clear without exudates. Moist mucous membranes. NECK: Normal range of motion, supple LUNGS: Breath sounds equal, clear to auscultation bilaterally. No wheezes, and no crackles. HEART:Regular rate and rhythm, normal S1 and S2 without murmur, rub or gallop. ABDOMEN: Soft, no lower abdominal tenderness, no involuntary guarding, no rebound, no CVA tenderness. EXTREMITIES: Normal range of motion, no edema. NEUROLOGICAL: Cranial nerves II through XII grossly intact. Normal speech. No focal neurological deficits. SKIN: Warm, Dry, normal turgor, no rashes or lesions noted. - Medical Decision Making 05/09/19 17:44 24-year-old female presenting to the emergency department with a complaint of lower abdominal pain which is been present for several days. Patient is G2, P1, currently approximately 9 weeks (no prior obstetrical evaluation, she is due to see her OB on May 22) No urinary symptoms, and no fever Patient also reports a frontal headache With no neurological deficits Will do: Lab Transvaginal ultrasound Urinalysis Tylenol for pain Reassess Signed out to overnight attending Pending ReAssessment
[2019-05-09] MEDS ORDERED: SODIUM CHLORIDE 0.9% 500 ML INFUS.BAG IV ONE (18:13)
[2019-05-09] MEDS ORDERED: METOCLOPRAMIDE HCL INJECTION 10 MG/2 ML VIAL ONE (18:36)
[2019-05-09 21:29] VITALS: BP 83/45; PULSE 64; TEMP 98.2
== END 2019-05-09 20:10 | disposition home or self-care (01) ==
LOC: JER 14:51
PROC: 3E033NZ Introduction of Analgesics, Hypnotics, Sedatives into Peripheral Vein, Percutaneous Approach (ICD-10-PCS; principal; 2019-05-09)
PROC: 3E0337Z Introduction of Electrolytic and Water Balance Substance into Peripheral Vein, Percutaneous Approach (ICD-10-PCS; 2019-05-09)
PROC: 3E033GC Introduction of Other Therapeutic Substance into Peripheral Vein, Percutaneous Approach (ICD-10-PCS; 2019-05-09)
DX: O26.891 Other specified pregnancy related conditions, first trimester (principal); Z3A.09 9 weeks gestation of pregnancy; R11.10 Vomiting, unspecified
CPT/HCPCS: 36415; 76817-TC; 80053; 81003; 84702; 85025; 87086; 96361; 96374; 96375; 99283-25; J0131; J7030

== ENCOUNTER 2019-05-14 14:07 | Emergency (ER) | payer OTHER ==
[2019-05-14 14:17] VITALS: BP 107/68; PULSE 89; TEMP 98.2; BMI 17.6
--- NOTE | 2019-05-14 15:51 | PDOC ---
History of Present Illness - General Chief Complaint: Pain, Acute Stated Complaint: 6WK ME/ABD PAIN Time Seen by Provider: 05/14/19 15:51 History Source: Patient Exam Limitations: No Limitations - History of Present Illness Initial Comments: 05/14/19 15:52 24yF 9wks presenting w 5d nausea/vomiting, 2 episodes of syncope w diaphoresis, chills, lightheaded, dizzy w short LOC. No head trauma. Took tylenol, B6 without improvement. 5d ago presented to ED w similar symptoms resolved w IVF, tylenol, reglan, confirmed viable IUP. Denies fever, chest pain/ SOB. Past History - Past Medical History Allergies/Adverse Reactions: Allergies Allergy/AdvReac Type Severity Reaction Status Date / Time No Known Drug Allergies Allergy Verified 05/09/19 14:54 Home Medications: Ambulatory Orders Ondansetron [Zofran *Odt*] 4 mg SL TID #5 od.tablet 05/14/19 Asthma: No Cancer: No Cardiac Disorders: No COPD: No Diabetes: No HTN: No Seizures: No Thyroid Disease: No - Reproductive History (#): 2 Para: 1 Therapeutic (s) & number: No Spontaneous : 0 - Immunization History Immunization Up to Date: No - Psycho Social/Smoking Cessation Hx Smoking History: Never smoked Have you smoked in the past 12 months: No Information on smoking cessation initiated: No Hx Alcohol Use: No Drug/Substance Use Hx: No Substance Use Type: None Hx Substance Use Treatment: No Review of Systems - Review of Systems Constitutional: No: Chills, Fever HEENTM: No: Eye Pain, Nose Pain Respiratory: No: Cough, Shortness of Breath Cardiac (ROS): No: Chest Pain, Palpitations ABD/GI: Yes: Nausea, Vomiting. No: Abdominal Distended, Constipated, Diarrhea : No: Burning, Dysuria, Hematuria Musculoskeletal: No: Back Pain, Joint Pain Integumentary: No: Bruising, Flushing, Lesions Neurological: No: Headache, Seizure, Tingling Psychiatric: No: Anxiety, Depression Endocrine: No: Excessive Sweating, Flushing, Intolerance to Cold, Intolerance to Heat Hematologic/Lymphatic: No: Anemia, Blood Clots *Physical Exam - Vital Signs Last Vital Signs Temp Pulse Resp BP Pulse Ox 98.2 F 89 18 107/68 99 05/14/19 14:14 05/14/19 14:14 05/14/19 14:14 05/14/19 14:14 05/14/19 14:14 - Physical Exam General Appearance: Yes: Nourished, Appropriately Dressed, Mild Distress HEENT: positive: EOMI, PIETRO, Normal Voice, Hearing Grossly Normal Respiratory/Chest: positive: Lungs Clear, Normal Breath Sounds. negative: Chest Tender, Respiratory Distress Cardiovascular: positive: Regular Rhythm, Regular Rate, S1, S2. negative: Edema , Murmur Female Pelvic Exam: positive: normal external exam, cervical os closed, normal adnexa, discharge (white). negative: CMT, adnexal tenderness, vaginal bleeding Gastrointestinal/Abdominal: positive: Normal Bowel Sounds, Tender (mild suprapubic), Flat, Soft. negative: Organomegaly Musculoskeletal: negative: CVA Tenderness (R), CVA Tenderness (L) Extremity: positive: Delayed Capillary Refill Integumentary: positive: Normal Color, Dry Neurologic: positive: Fully Oriented, Alert, Normal Response, Responsive. negative: Confused, Disoriented ED Treatment Course - LABORATORY CBC & Chemistry Diagram: 05/14/19 17:15 05/14/19 17:15 Medical Decision Making - Medical Decision Making 05/14/19 16:27 EKG NSR, TWI V1, HR 68, QTc 423, no ST changes pelvic exam showed white physiologic discharge, no bleeding, closed cervical os , no cervical/ovarian tenderness --- 24yF 9wks presenting w 5d nausea/vomiting, 2 vasovagal syncopal episodes. Low concern for ACS (neg trop, NSR EKG). Given 2L NS, zofran, tylenol. Anticipate DC home w OBGYN f/u and zofran prescription Signed out to night team - re-eval symptom improvement after 2L NS and tylenol Discharge - Discharge Information Problems reviewed: Yes Clinical Impression/Diagnosis: Vasovagal syncope Condition: Improved Disposition: HOME - Admission No - Additional Discharge Information Prescriptions: Ondansetron [Zofran *Odt*] 4 mg SL TID #5 od.tablet - Follow up/Referral Referrals: Mirna Pierce, PLASTIC SURGERY SPECIALIST [Primary Care Provider] - - Patient Discharge Instructions Patient Printed Discharge Instructions: DI for Syncope in Adults (Fainting), DI for Hyperemesis Gravidarum Additional Instructions: Take zofran prescription if you are vomiting. Take tylenol if you have pain. Drink lots of water Please follow up with your OBGYN doctor regarding your . Follow up with your primary care doctor regarding your fainting episodes (vasovagal syncope) Come back to the ED if you have worsening abdominal pain or vomiting despite medication, vaginal bleeding, trouble breathing, or chest pain. - Post Discharge Activity
[2019-05-14] MEDS ORDERED: ONDANSETRON 4 MG/2 ML VIAL IVPUSH ONE (16:04)
[2019-05-14] MEDS ORDERED: SODIUM CHLORIDE 0.9% 500 ML INFUS.BAG IV ONE (16:04)
--- NOTE | 2019-05-14 16:56 | PDOC ---
Documentation entered by Hanna Love SCRIBE, acting as scribe for Maya Munguia MD. Maya Munguia MD: This documentation has been prepared by the Kate saldivar Brenda, SCRIBE, under my direction and personally reviewed by me in its entirety. I confirm that the documentation accurately reflects all work, treatment, procedures, and medical decision making performed by me. Attending Attestation - Resident Resident Name: DaveJovanny - ED Attending Attestation I have performed the following: I have examined & evaluated the patient, The case was reviewed & discussed with the resident, I agree w/resident's findings & plan, Exceptions are as noted - HPI HPI: 05/14/19 16:46 The patient is a 24 year old female (), 9 weeks m, with no significant PMH who presents to the ED for hyperemesis along with nausea and a few episodes of vasovagale. She reports that she was here earlier last week for the same symptoms and was discharged. Has appointment with OB next week. The patient denies head trauma and vaginal bleeding. Denies chest pain, shortness of breath, headache and dizziness. Denies fever, chills, diarrhea and constipation. Denies dysuria, frequency, urgency and hematuria. Allergies: NKA Past surgical history: Normal delivery 20 months ago Social history: Swimming Coach. No reported hx of tobacco use, alcohol use or illicit drug use. - Physicial Exam PE: 05/14/19 16:50 GENERAL: Awake, alert, and fully oriented, in no acute distress HEAD: No signs of trauma EYES: PERRLA, EOMI, sclera anicteric, conjunctiva clear ENT: Auricles normal inspection, hearing grossly normal, nares patent, oropharynx clear without exudates. Moist mucosa NECK: Normal ROM, supple, no lymphadenopathy, JVD, or masses LUNGS: Breath sounds equal, clear to auscultation bilaterally. No wheezes, and no crackles HEART: Regular rate and rhythm, normal S1 and S2, no murmurs, rubs or gallops ABDOMEN: Soft, nontender, normoactive bowel sounds. No guarding, no rebound. No masses EXTREMITIES: Normal range of motion, no edema. No clubbing or cyanosis. No cords, erythema, or tenderness NEUROLOGICAL: Cranial nerves II through XII grossly intact. Normal speech, normal gait SKIN: Warm, Dry, normal turgor, no rashes or lesions noted. - Medical Decision Making 05/14/19 16:55 gave 20 months ago Now with hyper emesis 05/14/19 17:43 pt seen 05/09/19 and US was SL IUP 6 weeks 3 days , BPM 128 and bhcg=42,[id number] blood type AB positive pt has no pelvic bleeding, no cramping 05/14/19 18:30 CBC unremarkable Chemistries reviewed and glucose is only 71, will give her some juice After IV fluids around she will be discharged home Impression hyperemesis, first trimester
[2019-05-14] MEDS ORDERED: ONDANSETRON 4 MG/2 ML VIAL ONE (17:10)
[2019-05-14 17:47] LABS: BASO % 0.5 % (0-2.0); EOS % 0.3 % (0-4.5); HEMATOCRIT 38.2 % (32.4-45.2); LYMPH % 29.3 % (8-40); MCH 30.3 pg (25.7-33.7); MCHC 33.9 g/dl (32.0-36.0); MEAN CELL VOLUME 89.2 fl (80-96); MEAN PLT VOLUME 12.3 fl (7.5-11.1); MONO % 6.9 % (3.8-10.2); PLATELET COUNT 144 K/MM3 (134-434); RBC 4.29 M/mm3 (3.60-5.2); RDW 13.1 % (11.6-15.6); WHITE BLOOD COUNT 6.2 K/mm3 (4.0-10.0)
[2019-05-14] MEDS ORDERED: ACETAMINOPHEN 1000 MG/100 ML VIAL (NON FORMULARY) IVPB ONE (17:50)
[2019-05-14 18:20] LABS: ALBUMIN 4.1 g/dl (3.4-5.0); ALK PHOS 68 U/L (45-117); ANION GAP 9 MMOL/L (8-16); BILIRUBIN,TOTAL 0.6 mg/dL (0.2-1); BLOOD UREA NITROGEN 9.9 mg/dL (7-18); CALCIUM 9.3 mg/dL (8.5-10.1); CHLORIDE 102 mmol/L (98-107); CO2 24 mmol/L (21-32); CREATININE 0.5 mg/dL (0.55-1.3); GLUCOSE,RANDOM 71 mg/dL (74-106); POTASSIUM 3.8 mmol/L (3.5-5.1); SGOT/AST 17 U/L (15-37); SGPT/ALT 27 U/L (13-61); SODIUM 136 mmol/L (136-145); TOT PROT 7.3 g/dl (6.4-8.2)
[2019-05-14 18:28] LABS: PH,URINE 5.5 (5.0-8.0); URINE APPEARANCE CLEAR; URINE BILIRUBIN NEGATIVE (NEGATIVE); URINE COLOR YELLOW; URINE GLUCOSE (UA) NEGATIVE (NEGATIVE); URINE KETONE 2+ (NEGATIVE); URINE LEUK ESTERASE NEGATIVE (NEGATIVE); URINE NITRITE NEGATIVE (NEGATIVE); URINE PROTEIN NEGATIVE (NEGATIVE); URINE UROBILINOGEN 0.2 mg/dL (0.2-1.0)
[2019-05-14] MEDS ORDERED: SODIUM CHLORIDE 1,000 ML IV STA (18:29)
[2019-05-14] MEDS ORDERED: ACETAMINOPHEN 500 MG TABLET (FP) PO ONE (18:33)
--- NOTE | 2019-05-14 19:25 | PDOC ---
*Physical Exam - Vital Signs Last Vital Signs Temp Pulse Resp BP Pulse Ox 98.2 F 89 18 107/68 99 05/14/19 14:14 05/14/19 14:14 05/14/19 14:14 05/14/19 14:14 05/14/19 14:14 ED Treatment Course - LABORATORY CBC & Chemistry Diagram: 05/14/19 17:15 05/14/19 17:15 - ADDITIONAL ORDERS Additional order review: Laboratory Results 05/14/19 05/14/19 17:50 17:15 Sodium 136 Potassium 3.8 Chloride 102 Carbon Dioxide 24 Anion Gap 9 BUN 9.9 Creatinine 0.5 L Est GFR (CKD-EPI)AfAm 155.90 Est GFR (CKD-EPI)NonAf 134.52 Random Glucose 71 L Calcium 9.3 Total Bilirubin 0.6 AST 17 ALT 27 Alkaline Phosphatase 68 Troponin I < 0.02 Total Protein 7.3 Albumin 4.1 Urine Color Yellow Urine Appearance Clear Urine pH 5.5 Ur Specific [place] 1.022 Urine Protein Negative Urine Glucose (UA) Negative Urine Ketones 2+ H Urine Blood Negative Urine Nitrite Negative Urine Bilirubin Negative Urine Urobilinogen 0.2 Ur Leukocyte Esterase Negative 05/14/19 17:15 RBC 4.29 MCV 89.2 MCHC 33.9 RDW 13.1 MPV 12.3 H Neutrophils % 63.0 Lymphocytes % 29.3 Monocytes % 6.9 Eosinophils % 0.3 Basophils % 0.5 - Medications Given in the ED: ED Medications Discontinued Medications Generic Name Dose Route Start Last Admin Trade Name Geraldo PRN Reason Stop Dose Admin Acetaminophen 1,000 mg 05/14/19 17:50 05/14/19 18:42 Ofirmev Injection - IVPB 05/14/19 17:51 Not Given ONCE ONE Acetaminophen 975 mg 05/14/19 18:33 05/14/19 18:41 Tylenol - PO 05/14/19 18:34 975 mg ONCE ONE Administration Ondansetron HCl 4 mg 05/14/19 16:04 05/14/19 17:14 Zofran Injection IVPUSH 05/14/19 16:05 4 mg NOW ONE Administration Sodium Chloride 1,000 ml 05/14/19 16:04 05/14/19 17:14 Normal Saline - IV 05/14/19 16:05 1,000 ml ONCE ONE Administration Medical Decision Making - Medical Decision Making 05/14/19 19:23 Sign out received from Dr. Acosta 24yo F with N/V/Suprapubic pain - Improving - Finishing 2nd L IVF - Discuss dispo with patient 05/14/19 19:40 - Patient feels much improved - Comfortable with discharge Dispo: Home Discharge - Discharge Information Problems reviewed: Yes Clinical Impression/Diagnosis: Vasovagal syncope Condition: Improved Disposition: HOME - Admission No - Additional Discharge Information Prescriptions: Ondansetron [Zofran *Odt*] 4 mg SL TID #5 od.tablet - Follow up/Referral Referrals: Mirna Pierce NP [Primary Care Provider] - - Patient Discharge Instructions Patient Printed Discharge Instructions: DI for Syncope in Adults (Fainting), DI for Hyperemesis Gravidarum Additional Instructions: Take zofran prescription if you are vomiting. Take tylenol if you have pain. Drink lots of water Please follow up with your OBGYN doctor regarding your . Follow up with your primary care doctor regarding your fainting episodes (vasovagal syncope) Come back to the ED if you have worsening abdominal pain or vomiting despite medication, vaginal bleeding, trouble breathing, or chest pain. - Post Discharge Activity
--- NOTE | 2019-05-15 12:04 | EKG ---
Test Reason : Blood Pressure : / mmHG Vent. Rate : 068 BPM Atrial Rate : 068 BPM P-R Int : 152 ms QRS Dur : 084 ms QT Int : 398 ms P-R-T Axes : 067 088 046 degrees QTc Int : 423 ms NORMAL SINUS RHYTHM WITH SINUS ARRHYTHMIA NORMAL ECG Confirmed by MD CECIL, BOBY ([id number]) on 05/15/2019 12:04:32 PM Referred By: Confirmed By:BOBY JACOB MD
== END 2019-05-14 20:08 | disposition home or self-care (01) ==
LOC: JER 14:07
PROC: 3E0337Z Introduction of Electrolytic and Water Balance Substance into Peripheral Vein, Percutaneous Approach (ICD-10-PCS; principal; 2019-05-14)
PROC: 3E033GC Introduction of Other Therapeutic Substance into Peripheral Vein, Percutaneous Approach (ICD-10-PCS; 2019-05-14)
DX: O26.891 Other specified pregnancy related conditions, first trimester (principal); O21.0 Mild hyperemesis gravidarum; R55 Syncope and collapse; Z3A.09 9 weeks gestation of pregnancy
CPT/HCPCS: 36415; 80053; 81003; 84484; 84702; 85025; 87086; 93005; 93010; 96361; 96374; 99283-25; J7030

== ENCOUNTER 2019-12-10 08:55 | Inpatient (IN) | payer OTHER ==
[2019-12-10 10:24] LABS: BASO % 0.3 % (0-2.0); EOS % 0.5 % (0-4.5); HEMATOCRIT 34.5 % (32.4-45.2); HEMOGLOBIN 11.3 GM/dL (10.7-15.3); LYMPH % 18.1 % (8-40); MCH 29.8 pg (25.7-33.7); MCHC 32.8 g/dl (32.0-36.0); MEAN CELL VOLUME 90.6 fl (80-96); MONO % 8.2 % (3.8-10.2); NEUT % 72.9 % (42.8-82.8); PLATELET COUNT 97 K/MM3 (134-434); RBC 3.81 M/mm3 (3.60-5.2); RDW 13.4 % (11.6-15.6); WHITE BLOOD COUNT 7.9 K/mm3 (4.0-10.0)
[2019-12-10 10:36] LABS: INR 0.94 (0.83-1.09); PROTHROMBIN TIME (PATIENT) 11.1 SEC (9.7-13.0)
[2019-12-10 10:39] LABS: ACTIVATED PTT 25.7 SECONDS (25.2-36.5); BLOOD UREA NITROGEN 5.7 mg/dL (7-18); CALCIUM 8.2 mg/dL (8.5-10.1); CREATININE 0.5 mg/dL (0.55-1.3); POTASSIUM 3.8 mmol/L (3.5-5.1)
--- NOTE | 2019-12-10 10:58 | HP ---
Past Medical History - Admission Chief Complaint: Thrombocytopenia History of Present Illness: 24yo @ 38.6wks by LMP/sono, [facility] 12/18, brought in today for NST and repeat CBC 36wk labs showed low plts of 114, repeat testing last week was 101. Reports +FM. No VB/LOF. Occ ctx. +FM Longstanding dizziness/weakness, headaches- negative evaluation by [facility] @ [facility] [address] History Source: Patient Limitations to Obtaining History: Language Barrier - Past Medical History DISK GRINDER: No: Alzheimer's, CVA, Dementia, Migraine, Multiple Sclerosis, Peripheral Neuropathy, Parkinson's, Seizure, Syncope, TIA, Vertigo, Other Cardiovascular: No: AFIB, Aneurysm, Aortic Insufficiency, Aortic Stenosis, CAD, CHF, Deep Vein Thrombosis, HTN, Hyperlipdemia, CO, Mitral Insufficiency, Mitral Stenosis, Murmur, Pulmonary Hypertension, Other Pulmonary: No: Asthma, Bronchitis, Cancer, COPD, O2 Dependent, Pneumonia, Previously Intubated, Pulmonary Embolus, Pulmonary Fibrosis, Sleep Apnea, Other Gastrointestinal: No: Ascites, Cancer, Constipation, Crohn's Disease, Diverticulitis, Diverticulosis, Esophageal Varices, Gastritis, GERD, GI Bleed, Hemorrhoids, Hiatal Hernia, Inflamatory Bowel Disease, Irritable Bowel Disease, Pancreatitis, Peptic Ulcer Disease, Ulcerative Colitis, Other Hepatobiliary: No: Cirrhosis, Cholelithiasis, Cholecystitis, Choledocholithiasis, Hepatitis A, Hepatitis B, Hepatitis C, Other Renal/: No: Renal Failure, Renal Inusuff, BPH, Cancer, Hematuria, Hemodial ysis, Neurogenic Bladder, Renal Calculi, UTI, Other Reproductive: No: Ectopic , Endometriosis, Fibroids, PID, Polycystic Ovary Syndrome, Postmenopausal, Other ...: 4 ...Para: 1 ...Term: 1 ...: 0 ...Spon : 1 ...Induced : 1 ...Living Children: 1 ...LMP: 03/14/19 ... Weeks Gestation by Dates: 38.6 ...EDC by Dates: 12/19/19 Heme/Onc: Yes: Anemia, Thrombocytopenia Infectious Disease: No: AIDS, C-Diff, Herpes Zoster, HIV, MRSA, STD's, Tub erculosis, VREF, Other Musculoskeletal: No: Bursitis, Chronic low back pain, Hemiparesis, Hemiplegia, Osteoarthritis, Paraplegia, Other Rheumatology: No: Fibromyalgia, Gout, Lupus, Rheumatoid Arthritis, Sarcoidosis, Vasculitis, Other ENT: No: Allergic Rhinitis, Sinusitis, Other Endocrine: No: [place]'s Disease, Sheridan's Disease, Diabetes Insipidus, Diabetes Mellitus, Hyperparathyroidism, Hyperthyroidism, Hypothyroidism, Osteopenia, SIADH, Other - Past Surgical History Past Surgical History: Yes: None Hx Myomectomy: No Hx Transabdominal Cerclage: No - Smoking History Smoking history: Never smoked Have you smoked in the past 12 months: No - Alcohol/Substance Use Hx Alcohol Use: No History of Substance Use: reports: None - Social History Usual Living Arrangement: Yes: With Significant Other Do you think of yourself as: Straight/Heterosexual ADL: Independent History of Recent Travel: No Home Medications - Allergies Allergies/Adverse Reactions: Allergies Allergy/AdvReac Type Severity Reaction Status Date / Time No Known Drug Allergies Allergy Verified 12/10/19 10:13 - Home Medications Home Medications: Ambulatory Orders Ferrous Sulfate [Iron] 325 mg PO DAILY 12/10/19 Vitamins (Sjr) - 1 tab PO DAILY 12/10/19 Physical Exam - Maternity Vital Signs: Vital Signs Temperature 98.2 F 12/10/19 10:14 Pulse Rate 93 H 12/10/19 10:14 Respiratory Rate 17 12/10/19 10:14 Blood Pressure 112/71 12/10/19 10:14 O2 Sat by Pulse Oximetry (%) Constitutional: Yes: Well Nourished - Abdominal Exam/OB Number of Fetuses: Single Presentation: Vertex Contractions: No Monitor Mode: External Heart Rate Location: [facility] Category: I Accelerations: Non-Uniform Decelerations: Variable - Vaginal Exam/OB Vaginal Bleeding: No Speculum Exam: No Dilatation (cm): 3 Effacement (%): 0 Amniotic Membrane Status: Intact Presentation: Vertex/Position - Physical Exam Edema: No - Labs Lab Results: CBC, BMP 12/10/19 09:48 12/10/19 09:48 Imaging - Results Ultrasound: Report Reviewed Problem List - Problems (1) 38 weeks gestation of Code(s): Z3A.38 - 38 WEEKS GESTATION OF Assessment/Plan 24yo @ 38.6wks by LMP/sono with gestational thrombocytopenia, worsening and intermittent variable decels on monitoring here. Admit to L&D IVFs, admission labs Continuous EFM/toco Pitocin/AROM IOL Epidural prn, anesthesia aware of platelets Anticipate Cornell Hill Md
[2019-12-10] MEDS ORDERED: ELECTROLYTE-148 SOLN 1,000 ML IV SCH (11:00)
[2019-12-10] MEDS ORDERED: OXYTOCIN 30 UNITS in 0.9% NS 30 UNIT/500 ML INFUS.BAG IVPB SCH (11:00)
--- NOTE | 2019-12-10 11:36 | PN ---
Progress Note, Labor Vaginal Exam #1 Labor Exam Date: 12/10/19 Labor Exam Time: 11:36 Heart Rate (range): Cat I Dilatation: 4 Effacement (%): 50 Presentation: Vertex/Position Station: -3 Remarks: AROM, clears Start pitocin Epidural prn Anticipate Cornell Hill MD
[2019-12-10 11:47] VITALS: BMI 21.2
[2019-12-10] MEDS ORDERED: OXYTOCIN 30 UNITS in 0.9% NS 30 UNIT/500 ML INFUS.BAG IVPB ONE (11:52)
[2019-12-10] MEDS ORDERED: PCA PUMP NR ONE (12:29)
[2019-12-10] MEDS ORDERED: FENTANYL/BUPIVACAINE/NS/PF - PCEA - 50 ML DISP.SYRIN EP SCH (12:30)
[2019-12-10] MEDS ORDERED: NALOXONE HCL 0.4 MG/ML VIAL IVPUSH PRN (12:30)
[2019-12-10] MEDS ORDERED: FENTANYL/BUPIVACAINE/NS/PF - PCEA - 50 ML DISP.SYRIN EP ONE (12:30)
[2019-12-10] MEDS ORDERED: BUPIVACAINE HCL/PF 0.25% (2.5MG/ML) 10 ML VIAL ONE (12:32)
--- NOTE | 2019-12-10 14:26 | PN ---
Progress Note, Labor Vaginal Exam #2 Labor Exam Date: 12/10/19 Labor Exam Time: 14:15 Heart Rate (range): Cat I Dilatation: 7-8 Effacement (%): 100 Amniotic Membrane Status: Ruptured Presentation: Vertex/Position Station: 0 Remarks: Comfortable s/p epidural Continue pitocin Anticipate Cornell Hill MD
[2019-12-10] MEDS ORDERED: OXYTOCIN 20 UNITS in 0.9% NS 20 UNIT/1,000 ML INFUS.BAG IV ONE (15:07)
[2019-12-10] MEDS ORDERED: BISACODYL 10 MG SUPP.RECT RC PRN (15:39)
[2019-12-10] MEDS ORDERED: BENZOCAINE 28 GM HEMORRHOIDAL OINTMENT TP PRN (15:39)
[2019-12-10] MEDS ORDERED: WITCH HAZEL 50% (TUCKS) 40 PAD/JAR PAD TP PRN (15:39)
[2019-12-10] MEDS ORDERED: METHYLERGONOVINE MALEATE 0.2 MG/1 ML AMP IM PRN (15:39)
[2019-12-10] MEDS ORDERED: BENZOCAINE 20% 57 GM BOTTLE TP PRN (15:39)
--- NOTE | 2019-12-10 15:39 | PN ---
Delivery - Delivery Vaginal Delivery: Spontaneous Type of Anesthesia: Epidural Episiotomy/Laceration: None EBL (cc): 250 Delivery, Single - Stages of Labor Placenta: Yes: Spontaneous - Condition of Hide Curer/Puppet Master Present: No Infant Gender: Female Position: Right, OA - 1 Minute Total Score: 9 5 Minutes Total Score: 9 - Feeding Plan Initial Plan: Exclusive throughout hospitalization Remarks - Remarks Remarks: of VFI from SHARMA[place] position over intact perineum. No meconium. Nuchal x 1 around feet. 38 week ; epidural anesthesia. Spontaneous delivery of anterior shoulder and body. Cord clamped and cut. placed on mother's abdomen. Apgars 9/9. Weight pending to allow skin to skin. Spontaneous delivery of intact placenta with 3VC. Fundus firm. Perineum inspected, superficial bilateral periurethral lacerations noted, not bleeding. EBL 250ml. Mother and baby doing well. Tawana Hill MD
[2019-12-10] MEDS ORDERED: OXYTOCIN 20 UNITS in 0.9% NS 20 UNIT/1,000 ML INFUS.BAG IV SCH (15:45)
[2019-12-10] MEDS: ACETAMINOPHEN 325 MG TABLET (FP) PO PRN (18:07)
[2019-12-10] MEDS: IBUPROFEN 600 MG TABLET (FP) PO PRN ×2 (18:08→22:00)
[2019-12-10] MEDS: FERROUS SO4 325 MG TABLET (FP) PO SCH (21:59)
[2019-12-11] MEDS: ACETAMINOPHEN 325 MG TABLET (FP) PO PRN ×2 (03:57→13:30)
[2019-12-11] MEDS: IBUPROFEN 600 MG TABLET (FP) PO PRN (03:58)
[2019-12-11 06:30] VITALS: PULSE 69
[2019-12-11 08:07] LABS: BASO % 0.2 % (0-2.0); EOS % 0.4 % (0-4.5); HEMATOCRIT 31.6 % (32.4-45.2); HEMOGLOBIN 10.4 GM/dL (10.7-15.3); LYMPH % 13.2 % (8-40); MCH 29.9 pg (25.7-33.7); MEAN CELL VOLUME 90.4 fl (80-96); MEAN PLT VOLUME 12.4 fl (7.5-11.1); MONO % 7.7 % (3.8-10.2); NEUT % 78.5 % (42.8-82.8); PLATELET COUNT 89 K/MM3 (134-434); RDW 13.7 % (11.6-15.6); WHITE BLOOD COUNT 12.4 K/mm3 (4.0-10.0)
--- NOTE | 2019-12-11 08:23 | PN ---
Post Progress Note - Subjective Subjective: Pain controlled. OOB ambulating. Lochia <menses. Type of Delivery: Vital Signs: Vital Signs Temperature 97.5 F L 12/11/19 06:29 Pulse Rate 69 12/11/19 06:29 Respiratory Rate 20 12/11/19 06:29 Blood Pressure 114/74 12/11/19 06:29 O2 Sat by Pulse Oximetry (%) 98 12/10/19 22:00 Uterus: Yes: Fundus below umbilicus Abdomen/GI: Yes: Abdomen soft Lochia: Yes: Rubra Lochia, amount: Small Extremities: Yes: Calves non-tender Perineum: Yes: Intact Activity: Ambulating - Labs Labs: CBC WBC 12.4 K/mm3 (4.0-10.0) H 12/11/19 07:24 RBC 3.50 M/mm3 (3.60-5.2) L 12/11/19 07:24 Hgb 10.4 GM/dL (10.7-15.3) L 12/11/19 07:24 Hct 31.6 % (32.4-45.2) L 12/11/19 07:24 MCV 90.4 fl (80-96) 12/11/19 07:24 MCH 29.9 pg (25.7-33.7) 12/11/19 07:24 MCHC 33.0 g/dl (32.0-36.0) 12/11/19 07:24 RDW 13.7 % (11.6-15.6) 12/11/19 07:24 Plt Count 89 K/MM3 (134-434) L 12/11/19 07:24 MPV 12.4 fl (7.5-11.1) H 12/11/19 07:24 Absolute Neuts (auto) 9.8 K/mm3 (1.5-8.0) H 12/11/19 07:24 Neutrophils % 78.5 % (42.8-82.8) 12/11/19 07:24 Lymphocytes % 13.2 % (8-40) D 12/11/19 07:24 Monocytes % 7.7 % (3.8-10.2) 12/11/19 07:24 Eosinophils % 0.4 % (0-4.5) 12/11/19 07:24 Basophils % 0.2 % (0-2.0) 12/11/19 07:24 Nucleated RBC % 0 % (0-0) 12/11/19 07:24 Problem List - Problems (1) 38 weeks gestation of Code(s): Z3A.38 - 38 WEEKS GESTATION OF Assessment/Plan 24yo s/p , PPD#1 Routine PP care PO pain control Labs reviewed D/C to home today Cornell Hill Md
[2019-12-11] MEDS: FERROUS SO4 325 MG TABLET (FP) PO SCH (09:15)
[2019-12-11] MEDS ORDERED: PRENATAL VITAMINS W/ FOLIC ACID TABLET (FP) PO SCH (10:00)
[2019-12-11] MEDS ORDERED: DIPHTH,PERTUSS(ACELL),TET 0.5 ML DISP.SYRIN IM ONE (10:00)
[2019-12-11 18:17] VITALS: BP 110/62; TEMP 98
[2019-12-11] MEDS ORDERED: SENNOSIDES/DOCUSATE COMBO (SENNA PLUS) TABLET (UD) PO PRN (22:00)
== END 2019-12-11 19:40 | disposition home or self-care (01) | DRG 560 ==
LOC: JDEL 08:55 → JLDR 10:47 → J3W 16:40
PROVIDERS: ADMIT Obstetrics & Gynecology; ATTEND Obstetrics & Gynecology
PROC: 10907ZC Drainage of Amniotic Fluid, Therapeutic from Products of Conception, Via Natural or Artificial Opening (ICD-10-PCS; principal; 2019-12-10)
PROC: 3E033VJ Introduction of Other Hormone into Peripheral Vein, Percutaneous Approach (ICD-10-PCS; 2019-12-10)
PROC: 10E0XZZ Delivery of Products of Conception, External Approach (ICD-10-PCS; 2019-12-10)
DX: O80 Encounter for full-term uncomplicated delivery (principal); D69.6 Thrombocytopenia, unspecified; D64.9 Anemia, unspecified; O69.89X0 Labor and delivery complicated by other cord complications, not applicable or unspecified; Z37.0 Single live birth; Z3A.38 38 weeks gestation of pregnancy
CPT/HCPCS: 36415; 59409; 80048; 85025; 85610; 85730; 86780; 86850; 86900; 86901; 90715; U0003

== ENCOUNTER 2020-10-03 09:33 | Emergency (ER) | payer OTHER ==
[2020-10-03 10:06] VITALS: BP 106/69; PULSE 62; TEMP 98.1; BMI 22.8
[2020-10-03] MEDS ORDERED: ACETAMINOPHEN 1000 MG/100 ML VIAL (NON FORMULARY) IVPB ONE (10:35)
[2020-10-03] MEDS ORDERED: ONDANSETRON *ODT* 4 MG TABLET SL ONE (10:35)
[2020-10-03] MEDS ORDERED: SODIUM CHLORIDE 1,000 ML IV STA (10:35)
[2020-10-03] MEDS ORDERED: MECLIZINE HCL 25 MG TABLET (FP) PO ONE (10:36)
[2020-10-03] MEDS ORDERED: ACETAMINOPHEN INJECTION 100 ML IVPB ONE (10:55)
[2020-10-03] MEDS ORDERED: ONDANSETRON 4 MG/2 ML VIAL ONE (10:55)
[2020-10-03 11:23] LABS: BASO % 0.4 % (0-2.0); EOS % 0.7 % (0-4.5); HEMATOCRIT 44.2 % (32.4-45.2); HEMOGLOBIN 14.8 GM/dL (10.7-15.3); LYMPH % 38.5 % (8-40); MCH 29.6 pg (25.7-33.7); MCHC 33.6 g/dl (32.0-36.0); MEAN CELL VOLUME 88.3 fl (80-96); MEAN PLT VOLUME 11.5 fl (7.5-11.1); MONO % 8.7 % (3.8-10.2); NEUT % 51.7 % (42.8-82.8); PLATELET COUNT 130 10^3/uL (134-434); RDW 12.8 % (11.6-15.6); WHITE BLOOD COUNT 4.6 K/mm3 (4.0-10.0)
[2020-10-03 11:40] LABS: BLOOD UREA NITROGEN 8.1 mg/dL (7-18); CALCIUM 9.4 mg/dL (8.5-10.1)
[2020-10-03 11:41] LABS: ALBUMIN 4.4 g/dl (3.4-5.0)
[2020-10-03 11:44] LABS: CREATININE 0.6 mg/dL (0.55-1.3)
[2020-10-03 11:45] LABS: BILIRUBIN,TOTAL 0.4 mg/dL (0.2-1); TOT PROT 7.7 g/dl (6.4-8.2)
[2020-10-03 11:48] LABS: URINE APPEARANCE CLEAR; URINE BILIRUBIN NEGATIVE (NEGATIVE); URINE COLOR YELLOW; URINE GLUCOSE (UA) NEGATIVE (NEGATIVE); URINE KETONE NEGATIVE (NEGATIVE); URINE LEUK ESTERASE NEGATIVE (NEGATIVE); URINE NITRITE NEGATIVE (NEGATIVE); URINE PROTEIN NEGATIVE (NEGATIVE); URINE UROBILINOGEN 0.2 mg/dL (0.2-1.0)
== END 2020-10-03 12:59 | disposition home or self-care (01) ==
LOC: JER 09:33
PROC: 3E0333Z Introduction of Anti-inflammatory into Peripheral Vein, Percutaneous Approach (ICD-10-PCS; principal; 2020-10-03)
PROC: 3E0337Z Introduction of Electrolytic and Water Balance Substance into Peripheral Vein, Percutaneous Approach (ICD-10-PCS; 2020-10-03)
DX: K52.9 Noninfective gastroenteritis and colitis, unspecified (principal)
CPT/HCPCS: 36415; 80053; 81003; 84703; 85025; 87086; 93005; 93010; 99284-25; C9803; J0131; Q0162; U0003; U0005

== ENCOUNTER 2021-06-06 14:19 | Emergency (ER) | payer OTHER ==
[2021-06-06 14:27] VITALS: TEMP 98.3; BMI 17.9
[2021-06-06] MEDS ORDERED: METOCLOPRAMIDE HCL INJECTION 10 MG/2 ML VIAL IVPUSH ONE (15:14)
[2021-06-06] MEDS ORDERED: SODIUM CHLORIDE 1,000 ML IV STA (15:14)
[2021-06-06] MEDS ORDERED: morphine CARPU-JECT 4 MG/1 ML DISP.SYRIN IVPUSH ONE (15:14)
[2021-06-06] MEDS ORDERED: METOCLOPRAMIDE HCL INJECTION 10 MG/2 ML VIAL ONE (15:47)
[2021-06-06] MEDS ORDERED: morphine SULFATE 4 MG/ML VIAL ONE (15:47)
[2021-06-06 15:54] LABS: URINE APPEARANCE CLEAR; URINE BILIRUBIN NEGATIVE (NEGATIVE); URINE COLOR YELLOW; URINE GLUCOSE (UA) NEGATIVE (NEGATIVE); URINE KETONE NEGATIVE (NEGATIVE); URINE LEUK ESTERASE NEGATIVE (NEGATIVE); URINE NITRITE NEGATIVE (NEGATIVE); URINE PROTEIN NEGATIVE (NEGATIVE); URINE UROBILINOGEN 0.2 mg/dL (0.2-1.0)
[2021-06-06 15:57] LABS: HCG,QUALITATIVE URINE Negative
[2021-06-06 16:09] LABS: BASO % 0.1 % (0-2.0); EOS % 0.8 % (0-4.5); HEMATOCRIT 43.2 % (32.4-45.2); HEMOGLOBIN 14.8 GM/dL (10.7-15.3); LYMPH % 14.9 % (8-40); MCHC 34.4 g/dl (32.0-36.0); MEAN CELL VOLUME 87.1 fl (80-96); MEAN PLT VOLUME 11.1 fl (7.5-11.1); MONO % 5.3 % (3.8-10.2); NEUT % 78.9 % (42.8-82.8); PLATELET COUNT 110 10^3/uL (134-434); RBC 4.95 M/mm3 (3.60-5.2); RDW 13.3 % (11.6-15.6); WHITE BLOOD COUNT 7.4 K/mm3 (4.0-10.0)
[2021-06-06 16:39] LABS: CALCIUM 9.4 mg/dL (8.5-10.1)
[2021-06-06 16:40] LABS: ALBUMIN 4.3 g/dl (3.4-5.0); BLOOD UREA NITROGEN 13.1 mg/dL (7-18)
[2021-06-06 16:43] LABS: CREATININE 0.7 mg/dL (0.55-1.3)
[2021-06-06 16:44] LABS: BILIRUBIN,TOTAL 0.6 mg/dL (0.2-1); TOT PROT 7.6 g/dl (6.4-8.2)
[2021-06-06 19:34] VITALS: BP 118/70; PULSE 80
[2021-06-07 15:07] LABS: SARS-CoV-2 NAA Not Detected (Not Detected)
== END 2021-06-06 19:34 | disposition home or self-care (01) ==
LOC: JER 14:19
PROC: 3E033NZ Introduction of Analgesics, Hypnotics, Sedatives into Peripheral Vein, Percutaneous Approach (ICD-10-PCS; principal; 2021-06-06)
PROC: 3E033GC Introduction of Other Therapeutic Substance into Peripheral Vein, Percutaneous Approach (ICD-10-PCS; 2021-06-06)
PROC: 3E0337Z Introduction of Electrolytic and Water Balance Substance into Peripheral Vein, Percutaneous Approach (ICD-10-PCS; 2021-06-06)
DX: K52.9 Noninfective gastroenteritis and colitis, unspecified (principal)
CPT/HCPCS: 36415; 74177-TC; 76830-TC; 80053; 81003; 83690; 84702; 84703; 85025; 87086; 96361; 96374; 96375; 99285-25; C9803; Q9967; U0003; U0005

== ENCOUNTER 2021-09-08 04:21 | Day surgery (SDC) | payer OTHER ==
[2021-09-03 15:29] VITALS: BMI 18.5
[2021-09-08] MEDS ORDERED: BUPIVACAINE HCL/PF 0.5% (5MG/ML) 10 ML VIAL ONE ×2 (07:57→11:53)
[2021-09-08] MEDS ORDERED: KETOROLAC TROMETHAMINE 30 MG/1 ML VIAL ONE (11:35)
[2021-09-08] MEDS ORDERED: MIDAZOLAM HCL 2 MG/2 ML SINGLE DOSE VIAL ONE (11:36)
[2021-09-08] MEDS ORDERED: FENTANYL CITRATE/PF 50 MCG/ML VIAL ONE ×2 (11:36→13:39)
[2021-09-08] MEDS ORDERED: GLYCOPYRROLATE 0.2 MG/1 ML VIAL ONE (12:43)
[2021-09-08] MEDS ORDERED: ROCURONIUM BROMIDE 50 MG/5 ML SYRINGE ONE (12:43)
[2021-09-08] MEDS ORDERED: PROPOFOL 20 ML ONE ×2 (12:43)
[2021-09-08] MEDS ORDERED: NEOSTIGMINE METHYLSULFATE 0.5 MG/ML - 10 ML MDV ONE (12:43)
[2021-09-08] MEDS ORDERED: DEXAMETHASONE SOD PHOSPHATE 4 MG/1 ML VIAL ONE (12:44)
[2021-09-08] MEDS ORDERED: LIDOCAINE HCL/PF 2% SDV 5ML VIAL ONE (12:44)
[2021-09-08] MEDS ORDERED: BUPIVACAINE HCL/PF 0.5% (5MG/ML) 10 ML VIAL IJ ONE ×2 (12:46)
[2021-09-08] MEDS ORDERED: ONDANSETRON 4 MG/2 ML VIAL IVPUSH PRN (14:42)
[2021-09-08] MEDS ORDERED: oxyCODONE HCL 5 MG TABLET PO PRN ×2 (14:42)
[2021-09-08] MEDS ORDERED: LACTATED RINGERS SOLUTION 1,000 ML IV SCH (14:45)
[2021-09-08] MEDS ORDERED: oxyCODONE HCL 5 MG TABLET ONE (15:38)
[2021-09-08 16:50] VITALS: BP 123/66; PULSE 66; TEMP 97.6
== END 2021-09-08 16:25 | disposition home or self-care (01) ==
LOC: JASU-SURG 04:21
PROVIDERS: ATTEND Student in an Organized Health Care Education/Training Program
PROC: 0UB74ZZ Excision of Bilateral Fallopian Tubes, Percutaneous Endoscopic Approach (ICD-10-PCS; principal; 2021-09-08 10:30)
DX: Z30.2 Encounter for sterilization (principal)
CPT/HCPCS: 81025; 88302-TC; 94760

== ENCOUNTER 2022-06-25 15:35 | Emergency (ER) | payer OTHER ==
[2022-06-25 15:48] VITALS: BP 129/78; PULSE 83; RESP 18; TEMP 98.1; BMI 21.2
[2022-06-25] MEDS ORDERED: LIDOCAINE 5% TOPICAL PATCH TP ONE (16:30)
[2022-06-25] MEDS ORDERED: ACETAMINOPHEN 500 MG TABLET (FP) PO ONE (16:30)
[2022-06-25] MEDS ORDERED: ACETAMINOPHEN 500 MG TABLET (FP) ONE (16:36)
[2022-06-25] MEDS ORDERED: LIDOCAINE 5% TOPICAL PATCH ONE (16:36)
[2022-06-25] MEDS ORDERED: KETOROLAC TROMETHAMINE 30 MG/1 ML VIAL IM ONE (17:05)
[2022-06-25] MEDS ORDERED: KETOROLAC TROMETHAMINE 30 MG/1 ML VIAL ONE (17:09)
== END 2022-06-25 17:24 | disposition home or self-care (01) ==
LOC: JERFT 15:35
PROC: 3E023GC Introduction of Other Therapeutic Substance into Muscle, Percutaneous Approach (ICD-10-PCS; principal; 2022-06-25)
DX: M54.12 Radiculopathy, cervical region (principal); M94.0 Chondrocostal junction syndrome [Tietze]
CPT/HCPCS: 71046-TC-FY; 93005; 93010; 99284-25

== ENCOUNTER 2023-08-01 20:06 | Emergency (ER) | payer OTHER ==
[2023-08-01 20:18] VITALS: BP 104/69; PULSE 65; RESP 17; TEMP 98.3; BMI 18.5
== END 2023-08-01 22:40 | disposition home or self-care (01) ==
LOC: JERFT 20:06
PROC: 3E023GC Introduction of Other Therapeutic Substance into Muscle, Percutaneous Approach (ICD-10-PCS; principal; 2023-08-01)
DX: R21 Rash and other nonspecific skin eruption (principal); L29.9 Pruritus, unspecified; L42 Pityriasis rosea
CPT/HCPCS: 99284-25

== ENCOUNTER 2023-10-05 11:40 | Emergency (ER) | payer OTHER ==
[2023-10-05 11:45] VITALS: RESP 18; TEMP 97.2; BMI 18.7
[2023-10-05] MEDS ORDERED: METOCLOPRAMIDE HCL INJECTION 10 MG/2 ML VIAL ONE (12:36)
[2023-10-05] MEDS: SODIUM CHLORIDE 0.9% 500 ML INFUS.BAG IV ONE (12:57)
[2023-10-05] MEDS: METOCLOPRAMIDE HCL INJECTION 10 MG/2 ML VIAL IVPUSH ONE (12:58)
[2023-10-05 13:03] LABS: BASO % 0.5 % (0-2.0); EOS % 0.6 % (0-4.5); HEMATOCRIT 41.1 % (32.4-45.2); HEMOGLOBIN 13.8 GM/dL (10.7-15.3); LYMPH % 23.3 % (8-40); MCH 30.4 pg (25.7-33.7); MCHC 33.7 g/dl (32.0-36.0); MEAN CELL VOLUME 90.3 fl (80-96); MEAN PLT VOLUME 11.1 fl (7.5-11.1); MONO % 13.3 % (3.8-10.2); NEUT % 62.3 % (42.8-82.8); PLATELET COUNT 140 10^3/uL (134-434); RBC 4.55 M/mm3 (3.60-5.2); RDW 12.7 % (11.6-15.6); WHITE BLOOD COUNT 5.3 K/mm3 (4.0-10.0)
[2023-10-05 13:07] LABS: HCG,QUALITATIVE URINE Negative
[2023-10-05 13:13] LABS: THROAT:GRP A STREP NOT DETECTED (NOTDETECTED)
[2023-10-05 13:17] LABS: POTASSIUM 4.2 mmol/L (3.5-5.1)
[2023-10-05 13:18] LABS: PH,URINE 7.5 (5.0-8.0); URINE APPEARANCE Clear; URINE BILIRUBIN Negative (NEGATIVE); URINE COLOR Yellow; URINE GLUCOSE (UA) Negative (NEGATIVE); URINE KETONE Negative (NEGATIVE); URINE LEUK ESTERASE Negative (NEGATIVE); URINE NITRITE Negative (NEGATIVE); URINE PROTEIN Negative (NEGATIVE); URINE UROBILINOGEN 0.2 mg/dL (0.2-1.0)
[2023-10-05 13:20] LABS: ALBUMIN 4.2 g/dl (3.4-5.0); BLOOD UREA NITROGEN 14.6 mg/dL (7-18); CALCIUM 9.2 mg/dL (8.5-10.1)
[2023-10-05 13:23] LABS: CREATININE 0.8 mg/dL (0.55-1.3)
[2023-10-05 13:25] LABS: BILIRUBIN,TOTAL 0.4 mg/dL (0.2-1); TOT PROT 7.7 g/dl (6.4-8.2)
[2023-10-05 13:36] LABS: EPI CELLS 9 /uL (0-25.1); URINE RBC 11 /uL (0-23.9); URINE WBC 15 /uL (0-25.8)
[2023-10-05 13:37] LABS: HYALINE CASTS 0.4 /uL (0-3.1); URINE BACTERIA 9 /uL (0-1359)
[2023-10-05 13:50] VITALS: BP 101/61; PULSE 62
== END 2023-10-05 14:32 | disposition home or self-care (01) ==
LOC: JER 11:40
PROC: 3E033GC Introduction of Other Therapeutic Substance into Peripheral Vein, Percutaneous Approach (ICD-10-PCS; principal; 2023-10-05)
DX: R42 Dizziness and giddiness (principal); R11.0 Nausea; R51.9 Headache, unspecified; Z20.822 Contact with and (suspected) exposure to COVID-19
CPT/HCPCS: 0241U-QW; 36415; 80053; 81003; 84703; 85025; 87086; 87651; 93005; 93010; 99284-25